=== PATIENT | male | born 1955 | race African-American/Black ===

== ENCOUNTER 2024-02-28 19:37 | Inpatient (IN) | payer MEDICARE, MEDICAID ==
[~2024-02-28] VITALS: Ht 182.9 cm; Wt 70.9 kg
--- NOTE | 2024-02-28 20:00 | ED.PDOC ---
GI ASSESSMENT HPI Comments 68-year-old male with PMHx DM, Epilepsy brought in by EMS presents with a chief complaint of abdominal pain x 0800 onset this morning with associated diarrhea, nausea, and vomiting. Patient states that his abdominal pain is localized to his periumbilical region, non-radiating, describes as sharp, and rates his pain a 10/10. Patient was hypertensive per EMS at 168/74 and had a blood sugar reading of 153. On arrival blood sugar was 114. Patient was sating at 91% on room air and was placed on 2L via NC by EMS. Patient takes Keppra for epilepsy. Chief Complaint: Abdominal Pain Time Seen by MD: 19:52 Reviewed Notes: Medications, Allergies Allergies: Coded Allergies: NO KNOWN ALLERGIES (Unverified , 02/28/24) Information Source: Emergency Med Personnel Mode of Arrival: EMS Timing: Hours Duration: Since onset Prehospital treatment: Oxygen (2L via NC), Pain Meds (Tylenol), Treatment (Zofran ) Quality: Sharp Vomitus: Bilious Stool: Loose, Brown Severity: Moderate Recent: None Recent Hx of: None Pain Location: Periumbilical Associated sign and symptoms: Nausea, Vomiting, Diarrhea, Abdominal Pain Past Medical History PAST MEDICAL HISTORY: DM Past Medical History (Other): Epilepsy Surgical History: Denies all surgeries Family History Family History: Reviewed,noncontributory to illness Social History Smoker: Non-Smoker Alcohol: Denies ETOH Use Drugs: Denies Drug Use Lives In: Home Constitutional: denies: chills, diaphoresis, fatigue, fever, malaise, sweats, weakness, others EENTM: denies: blurred vision, double vision, ear bleeding, ear discharge, ear drainage, ear pain, ear ringing, eye pain, eye redness, hearing loss, mouth pain, mouth swelling, nasal discharge, nose bleeding, nose congestion, nose pain, photophobia, tearing, throat pain, throat swelling, voice changes, others Respiratory: denies: cough, hemoptysis, orthopnea, SOB at rest, shortness of breath, SOB with excertion, stridor, wheezing, others Cardiovascular: denies: chest pain, dizzy spells, diaphoresis, Dyspnea on exertion, edema, irregular heart beat, left arm pain, lightheadedness, palpitations, PND, syncope, others Gastrointestinal: reports: abdominal pain, diarrhea, nausea, vomiting; denies: abdomen distended, blood streaked bowels, constipated, dysphagia, difficulty swallowing, hematemesis, melena, poor appetite, poor fluid intake, rectal bleeding, rectal pain, others Genitourinary: denies: burning, dysuria, flank pain, frequency, hematuria, incontinence, penile discharge, penile sore, pain, testicle pain, testicle swelling, urgency, others Neurological: denies: dizziness, fainting, headache, left sided numbness, left sided weakness, numbness, paresthesia, pre-existing deficit, right sided numbness, right sided weakness, seizure, speech problems, tingling, tremors, weakness, others Musculoskeletal: denies: back pain, gout, joint pain, joint swelling, muscle pain, muscle stiffness, neck pain, others Integumetry: denies: bruises, change in color, change in hair/nails, dryness, laceration, lesions, lumps, rash, wounds, others Allergic/Immunocompromised: denies: Difficulty Healing, Frequent Infections, Hives, Itching, others Hematologic/Lymphatic: denies: anemia, blood clots, easy bleeding, easy bruising, swollen glands, others Endocrine: denies: excessive hunger, excessive sweating, excessive thirst, excessive urination, flushing, intolerance to cold, intolerance to heat, unexplained weight gain, unexplained weight loss, others Psychiatric: denies: anxiety, bipolar disorder, depression, hopeless, panic disorder, schizophrenia, sleepless, suicidal, others All Other Systems: Reviewed and Negative Physical Exam General Appearance: Normal, Severe Distress HEENT: Normal ENT Inspection, Pharynx Normal, TMs Normal Neck: Full Range of Motion, Non-Tender, Normal, Normal Inspection Respiratory: Chest Non-Tender, Lungs Clear, No Accessory Muscle Use, No Respiratory Distress, Normal Breath Sounds Cardiovascular: No Edema, No JVD, No Murmur, No Gallop, Normal Peripheral Pulses, Regular Rate/Rhythm Breast Exam: Deferred Gastrointestinal: Diffuse, No Organomegaly, No Pulsatile Mass, Normal Bowel Sounds, Soft, Tenderness (Severe with guarding) Genitalia: Deferred Pelvic: Deferred Rectal: Deferred Extremities: No calf tenderness, Normal capillary refill, Normal inspection, Normal range of motion, Non-tender, No pedal edema Musculoskeletal : Apperance: Normal Neurologic: Alert, credit rating checker II-XII nml as Tested, No Motor Deficits, Normal Affect, Normal Mood, No Sensory Deficits Cerebellar Function: Normal Reflexes: Normal Skin: Dry, Normal Color, Warm Lymphatic: No Adenopathy Was a procedure done? Was a procedure done?: No GI differential Dx Differential Diagnosis: Constipation, Diverticular disease, Gastritis/PUD, Gastroenteritis, GI hemorrhage, UTI X-Ray, Labs, Meds, VS Vital Signs Date Time Temp Pulse Resp B/P (MAP) Pulse Ox O2 Delivery O2 Flow Rate FiO2 02/28/24 21:45 69 21 186/75 02/28/24 21:30 97.5 69 21 186/75 (112) 92 97.5 02/28/24 21:16 70 02/28/24 20:25 100.5 80 23 168/74 (105) 96 100.5 02/28/24 19:55 109 02/28/24 19:46 97.7 72 26 168/74 (105) 99 Lab Test 02/28/24 21:00 Range/Units White Blood Count 8.4 4.4-10.8 10^3/uL Red Blood Count 6.39 H 4.5-5.90 10^6/uL Hemoglobin 14.3 13.5-17.5 g/dL Hematocrit 43.6 41.0-53.0 % Mean Corpuscular Volume 68.3 L 80.0-100.0 fL Mean Corpuscular Hemoglobin 22.4 L 28.0-32.0 pg Mean Corpuscular Hemoglobin Concent 32.8 32.0-36.0 g/dL Red Cell Distribution Width 22.8 H 11.8-14.3 % Platelet Count 217 140-450 10^3/uL Mean Platelet Volume 8.6 6.9-10.8 fL Neutrophils (%) (Auto) 87.2 H 37.0-80.0 % Lymphocytes (%) (Auto) 5.3 L 10.0-50.0 % Monocytes (%) (Auto) 7.0 0.0-12.0 % Eosinophils (%) (Auto) 0.0 0.0-7.0 % Basophils (%) (Auto) 0.5 0.0-2.0 % Neutrophils # (Auto) 7.3 1.6-8.6 10 ^3/uL Lymphocytes # (Auto) 0.4 0.4-5.4 10 ^3/uL Monocytes # (Auto) 0.6 0-1.3 10 ^3/uL Eosinophils # (Auto) 0 0-0.8 10 ^3/uL Basophils # (Auto) 0 0-0.2 10 ^3/uL Nucleated Red Blood Cells 0.1 % Sodium Level 137 136-145 mmol/L Potassium Level 3.7 3.5-5.1 mmol/L Chloride Level 102 98-107 mmol/L Carbon Dioxide Level 23 20-31 mmol/L Anion Gap 12 5-15 Blood Urea Nitrogen 15 9-23 mg/dL Creatinine 1.02 0.700-1.30 mg/dL Glomerular Filtration Rate Calc 80 >90 mL/min BUN/Creatinine Ratio 14.7 10.0-20.0 Serum Glucose 120 H 74-106 mg/dL Lactic Acid Level 3.9 *H 0.4-2.0 mmol/L Calcium Level 10.0 8.7-10.4 mg/dL Total Bilirubin 1.4 H 0.2-1.0 mg/dL Aspartate Amino Transferase (AST) 42 H 13-40 U/L Alanine Aminotransferase (ALT) 18 7-40 U/L Alkaline Phosphatase 78 46-116 U/L Troponin I High Sensitivity 12 </=54 ng/L Total Protein 6.9 5.7-8.2 g/dL Albumin 4.4 3.2-4.8 g/dL Urine Opiates Screen Neg NEGATIVE Urine Fentanyl Screen Neg NEGATIVE Urine Barbiturates Screen Neg NEGATIVE Urine Phencyclidine Screen Neg NEGATIVE Urine Amphetamines Screen Neg NEGATIVE Urine Benzodiazepines Screen Neg NEGATIVE Urine Cocaine Screen Neg NEGATIVE Urine Cannabinoids Screen Pos NEGATIVE Plasma/Serum Blood Alcohol 4.3 <10 mg/dL Current Medications Medications (Trade) Dose Ordered Sig/Sergei Route Start Time Stop Time Status Last Admin Sodium Chloride 2,000 ml @ 1,000 mls/hr Q2H ONCE IV 02/28/24 20:00 02/28/24 21:59 DC 02/28/24 20:31 Ketorolac Tromethamine (Toradol Injection) 30 mg ONCE ONCE IV 02/28/24 20:00 02/28/24 20:01 DC 02/28/24 20:31 Ondansetron HCl (Zofran) 4 mg ONCE ONCE IV 02/28/24 20:00 02/28/24 20:01 DC 02/28/24 20:30 Hydromorphone HCl (Dilaudid Injection) 1 mg ONCE ONCE IV 02/28/24 21:00 02/28/24 21:01 DC 02/28/24 21:45 PATIENT: GIGI BATES: [id number]: [id number] : 1955 LOC: ER ROOM / BED: / AGE / SEX: 68 / M ADM STATUS: REG ER SERVICE 54 ORDERING PHYSICIAN: MACO CASTANON MD PROCEDURE(s): ABPLIV - CT AB PEL WITH IV CON ONLY REASON: abd pain ORDER NUMBER(s): [id number], ACCESSION NUMBER(s): [id number] Exam: CT CT AB PEL WITH IV CON ONLY History: abd pain Comparison Study: None TECHNIQUE: A digital counterintelligence specialist image was obtained. During the uneventful, intravenous administration of contrast material, multislice data acquisition was obtained through the abdomen and pelvis. The data set was subsequently reconstructed into axial images. Images reviewed on a wrist examination is an examination of axial and multiplanar reformations using a variety of window levels and settings. RADIATION DOSE: DLP 483.66 mGy.cm; CTDI vol 9.2 mGy. Findings: Suboptimal visualization due to motion and beam hardening artifacts. Lungs: The lung bases are clear. Heart: The visualized heart is unremarkable. No cardiomegaly or pericardial effusion. Liver: Unremarkable. Gallbladder: Unremarkable. Spleen: Unremarkable Pancreas: Unremarkable Adrenals: Unremarkable Kidneys: Left renal cyst. GI tract: Unremarkable : Unremarkable. Vasculature: Mild to moderate aortoiliac atherosclerosis. Lymphadenopathy: Absent Peritoneum: No ascites Musculoskeletal: Unremarkable Soft tissues: Unremarkable Impression: 1. Suboptimal visualization due to motion and beam hardening artifacts. 2. No definite acute abdominopelvic abnormalities. ATED BY: KELL EPSTEIN DO DICTATED DATE/TIME: 02/28/242133 SIGNED BY: KELL EPSTEIN DO SIGNED DATE/TIME: 02/28/242133 CBC and CMP were normal. UDS reveals positive for marijuana. Abdominal pelvis CT shows no signs of abnormality. CT scan was read and interpreted by myself. The patient was given Zofran for recurrent and recalcitrant nausea and vomiting. He was also given Protonix and GI cocktail with Dilaudid. If he continues to have vomiting we will give him Haldol. Time of 1ST Reevaluation: 20:22 Reevaluation 1ST: Unchanged Patient Education/Counseling: Diagnosis, Treatment, Prognosis Family Education/Counseling: No Family Present Departure 1 Departure Time of Disposition: 22:09 Impression: Primary Impression: Cyclic vomiting syndrome Additional Impression: Marijuana abuse Disposition: ADMITTED INPATIENT Admit to: Med Surg Condition: Guarded Discharged With: Self Critical Care Note Critical Care Time?: No Stability Stability form required: No I personally scribed for MACO CASTANON MD ([email or web address]) on 02/28/24 at 20:00. Electronically submitted by Lalo Cosby [email or web address]). I personally scribed for MACO CASTANON MD ([email or web address]) on 02/28/24 at 22:02. Electronically submitted by Lalo Cosby [email or web address]). MACO CASTANON MD Feb 28, 2024 20:00
[2024-02-28] MEDS: ONDANSETRON HCL 4 MG/2 ML VIAL IV ONE (20:30)
[2024-02-28] MEDS: KETOROLAC TROMETH 30 MG/ML 1ML VIAL IV ONE (20:31)
[2024-02-28] MEDS: SODIUM CHLORIDE 0.9% 2,000 ML IV ONE (20:31)
[2024-02-28] MEDS: IOHEXOL 300 MG/ML 100ML BOTTLE IJ ONE (20:44)
[2024-02-28 21:25] LABS: Basophils # (auto) 0 10 ^3/uL (0-0.2); Eosinophils # (auto) 0 10 ^3/uL (0-0.8)
[2024-02-28 21:27] LABS: Basophils % (auto) 0.5 % (0.0-2.0); Hematocrit 43.6 % (41.0-53.0); Hemoglobin 14.3 g/dL (13.5-17.5); Lymphocytes # (auto) 0.4 10 ^3/uL (0.4-5.4); Lymphocytes % (auto) 5.3 % (10.0-50.0); Mean Corpuscular Hemoglobin 22.4 pg (28.0-32.0); Mean Corpuscular Hgb Conc. 32.8 g/dL (32.0-36.0); Mean Corpuscular Volume 68.3 fL (80.0-100.0); Monocytes # (auto) 0.6 10 ^3/uL (0-1.3); Neutrophils # (auto) 7.3 10 ^3/uL (1.6-8.6); Neutrophils % (auto) 87.2 % (37.0-80.0); Nucleated Red Blood Cells % 0.1 %; Platelet Count (auto) 217 10^3/uL (140-450); Red Blood Cells 6.39 10^6/uL (4.5-5.90); White Blood Cell 8.4 10^3/uL (4.4-10.8)
[2024-02-28 21:29] LABS: Red Cell Distribution Width 22.8 % (11.8-14.3)
[2024-02-28 21:36] LABS: Alanine Aminotransferase 18 U/L (7-40); Albumin 4.4 g/dL (3.2-4.8); Alkaline Phosphatase 78 U/L (46-116); Anion Gap 12 (5-15); BUN/Creatinine Ratio 14.7 (10.0-20.0); Blood Urea Nitrogen 15 mg/dL (9-23); Carbon Dioxide 23 mmol/L (20-31); Chloride 102 mmol/L (98-107); Potassium 3.7 mmol/L (3.5-5.1); Sodium 137 mmol/L (136-145); Total Protein 6.9 g/dL (5.7-8.2)
--- NOTE | 2024-02-28 21:36 | DVH ---
Exam: CT CT AB PEL WITH IV CON ONLY History: abd pain Comparison Study: None TECHNIQUE: A digital printing and stamping supervisor image was obtained. During the uneventful, intravenous administration of c ontrast material, multislice data acquisition was obtained through the abdomen and pelvis. The data s et was subsequently reconstructed into axial images. Images reviewed on a wrist examination is an exa mination of axial and multiplanar reformations using a variety of window levels and settings. RADIATION DOSE: DLP 483.66 mGy.cm; CTDI vol 9.2 mGy. Findings: Suboptimal visualization due to motion and beam hardening artifacts. Lungs: The lung bases are clear. Heart: The visualized heart is unremarkable. No cardiomegaly or pericardial effusion. Liver: Unremarkable. Gallbladder: Unremarkable. Spleen: Unremarkable Pancreas: Unremarkable Adrenals: Unremarkable Kidneys: Left renal cyst. GI tract: Unremarkable : Unremarkable. Vasculature: Mild to moderate aortoiliac atherosclerosis. Lymphadenopathy: Absent Peritoneum: No ascites Musculoskeletal: Unremarkable Soft tissues: Unremarkable Impression: 1. Suboptimal visualization due to motion and beam hardening artifacts. 2. No definite acute abdominopelvic abnormalities.
[2024-02-28 21:42] LABS: Aspartate Aminotransferase 42 U/L (13-40); Bilirubin, Total 1.4 mg/dL (0.2-1.0); Glucose 120 mg/dL (74-106)
[2024-02-28 21:43] LABS: Amphetamine Screen, Urine Neg (NEGATIVE); Barbiturate Scree,Urine Neg (NEGATIVE); Benzodiazephine Screen, Urine Neg (NEGATIVE); Cannabinoid Screen, Urine Pos (NEGATIVE); Cocaine Screen, Urine Neg (NEGATIVE); Opiate Scree,Urine Neg (NEGATIVE); Phencyclidine Screen, Urine Neg (NEGATIVE)
[2024-02-28] MEDS: HYDROmorphone HCL 2 MG/ML VL/or syr IV ONE (21:45)
[2024-02-28 21:48] LABS: Lactic Acid w/Reflex 3.9 mmol/L (0.4-2.0)
[2024-02-28 22:03] VITALS: RESP 23; O2SAT 96
[2024-02-28 22:13] LABS: Base Excess -4.9 mmol/L (-2.0-3.0)
[2024-02-28] MEDS ORDERED: NITROGLYCERIN 0.4 MG SL TAB SL PRN (23:00)
[2024-02-28] MEDS ORDERED: ONDANSETRON HCL 4 MG/2 ML VIAL IV PRN (23:00)
[2024-02-28] MEDS ORDERED: MORPHINE SULFATE INJ 2 MG/ml SYRG IV PRN ×2 (23:00)
[2024-02-28] MEDS ORDERED: ACETAMINOPHEN 325 MG TAB PO PRN (23:00)
--- NOTE | 2024-02-28 23:10 | DVHHPRES ---
History of Present Illness Resident Creating Document: KYARA RODRIGUEZ RESIDENT History of Present Illness This is a 68 years old male with past medical history of hypertension, epilepsy presented to the ED with a chief complaint of abdominal pain, nausea and vomiting for 2 days. According to the patient the abdominal pain started yesterday which was sharp, localized,8/10, with no aggravating factors and relieved by taking Protonix and associated with nausea and vomiting. The patient mentioned recently started marijuana abuse and UDS is also positive for marijuana. The patient denies hematemesis, dizziness, dysuria, hematuria , diarrhoea or any blood in stool. Patient has history of epilepsy since young age and he is on medication but did not mentioned the name and last seizure was today morning and it was last for 2 minutes witnessed by his fiance without any incontinence or tongue biting. PCP: Yousif Pedraza Past Medical History Hypertension, epilepsy Past Surgical History None Past Social History Smokes 10 cigarettes per day, nonalcoholic and also smokes marijuana Review of Systems Constitutional: No: Fever, Chills, Sweats, Weakness, Malaise, Other Eyes: No: Pain, Vision change, Conjunctivae inflammation, Eyelid inflammation, Other, Redness ENT: No: Ear pain, Ear discharge, Nose pain, Nose discharge, Nose congestion, Mouth pain, Mouth swelling, Throat pain, Throat swelling, Other Respiratory: No: Cough, Dry, Shortness of breath, SOB with excertion, Wheezing, Hemoptysis, Pleuritic Pain, Sputum, Wheezing, Other Cardiovascular: No: Chest Pain, Palpitations, Orthopnea, Paroxysmal Noc. Dyspnea, Edema, Lt Headedness, Other Gastrointestinal: Nausea, Vomiting, Abdominal Pain, Constipation; No: Diarrhea, Melena, Hematochezia, Other Genitourinary: No Dysuria, No Frequency, No Incontinence, No Hematuria, No Retention, No Other Musculoskeletal: No: other, neck pain, shoulder pain, arm pain, back pain, hand pain, leg pain, foot pain Skin: No: Rash, Lesions, Jaundice, Bruising, Other Neurological: No: Weakness, Numbness, Incoordination, Change in speech, Confusion, Seizures, Other Allergies: Coded Allergies: NO KNOWN ALLERGIES (Unverified , 02/28/24) Medications Current Medications Medications Dose Ordered Sig/Sergei Route Start Time Stop Time Status Last Admin Dose Admin Sodium Chloride 10 ml Q8HR IV 02/29/24 06:00 UNV Sodium Chloride 1,000 ml @ 100 mls/hr Q10H IV 02/28/24 23:00 UNV Ondansetron HCl 4 mg Q4HP PRN IV 02/28/24 23:00 UNV Enoxaparin Sodium 40 mg DAILY SC 02/29/24 10:00 Acetaminophen 650 mg Q6HP PRN PO 02/28/24 23:00 UNV Morphine Sulfate 2 mg Q4HPRN PRN IV 02/28/24 23:00 UNV Nitroglycerin 0.4 mg Q5MINP PRN SL 02/28/24 23:00 UNV Morphine Sulfate 2 mg Q30M PRN IV 02/28/24 23:00 UNV Exam Vital Signs Vital Signs Date Time Temp Pulse Resp B/P (MAP) Pulse Ox O2 Delivery O2 Flow Rate FiO2 02/28/24 22:03 23 96 Room Air* 0 21 02/28/24 22:00 78 139/50 (79) 02/28/24 21:30 97.5 97.5 Exam Physical examination: General Appearance: Alert, Oriented X3, Cooperative, No acute distress HEENT: Atraumatic, PERRLA, EOMI, Mucous membrane moist/pink Respiratory: Clear to auscultation, Normal air movement Cardiovascular: Regular rate, Normal S1, Normal S2, No murmurs, no chest wall tenderness Abdominal: Normal bowel sounds, Soft, No tenderness, No hepatospenomegaly, No masses Extremities: No clubbing, No cyanosis, No edema, Normal pulses, No tenderness/swelling Skin: No rashes, No breakdown, No significant lesion Neuro: Normal gait, Normal speech, Strength at 5/5 X4 ext, Normal tone, Sensation intact, grossly intact cranial nerves Psych/Mental Status: Mental status NL, Mood NL Labs/Xrays Labs Test 02/28/24 22:20 02/28/24 22:10 02/28/24 22:05 02/28/24 21:00 Range/Units Lactic Acid Level 2.4 *H 0.4-2.0 mmol/L Troponin I High Sensitivity 11 </=54 ng/L Blood Gas Specimen Type Arterial Blood Gas Sample Site Right radial Blood Gas Patient Temperature 37.0 Arterial Blood Date Drawn [id number] Arterial Blood pH 7.370 7.350-7.450 Arterial Blood Partial Pressure CO2 34.6 L 35.0-48.0 mmHg Arterial Blood Partial Pressure O2 55.8 L 83.0-108.0 mmHg Arterial Blood HCO3 19.6 L 21.0-28.0 mmol/L Arterial Blood Oxygen Saturation 87.4 L 94.0-98.0 % Arterial Blood Base Excess -4.9 L -2.0-3.0 mmol/L Arterial Blood Oxyhemoglobin 85.7 L 94.0-98.0 % Arterial Blood Carboxyhemoglobin 1.4 0.5-1.5 % Arterial Blood Methemoglobin 0.6 0.0-1.5 % Lino Test Yes Blood Gas Total Hemoglobin 13.70 13.5-17.5 g/dL Blood Gas Modality Room air FiO2 % 21.0 White Blood Count 8.4 4.4-10.8 10^3/uL Red Blood Count 6.39 H 4.5-5.90 10^6/uL Hemoglobin 14.3 13.5-17.5 g/dL Hematocrit 43.6 41.0-53.0 % Mean Corpuscular Volume 68.3 L 80.0-100.0 fL Mean Corpuscular Hemoglobin 22.4 L 28.0-32.0 pg Mean Corpuscular Hemoglobin Concent 32.8 32.0-36.0 g/dL Red Cell Distribution Width 22.8 H 11.8-14.3 % Platelet Count 217 140-450 10^3/uL Mean Platelet Volume 8.6 6.9-10.8 fL Neutrophils (%) (Auto) 87.2 H 37.0-80.0 % Lymphocytes (%) (Auto) 5.3 L 10.0-50.0 % Monocytes (%) (Auto) 7.0 0.0-12.0 % Eosinophils (%) (Auto) 0.0 0.0-7.0 % Basophils (%) (Auto) 0.5 0.0-2.0 % Neutrophils # (Auto) 7.3 1.6-8.6 10 ^3/uL Lymphocytes # (Auto) 0.4 0.4-5.4 10 ^3/uL Monocytes # (Auto) 0.6 0-1.3 10 ^3/uL Eosinophils # (Auto) 0 0-0.8 10 ^3/uL Basophils # (Auto) 0 0-0.2 10 ^3/uL Nucleated Red Blood Cells 0.1 % Sodium Level 137 136-145 mmol/L Potassium Level 3.7 3.5-5.1 mmol/L Chloride Level 102 98-107 mmol/L Carbon Dioxide Level 23 20-31 mmol/L Anion Gap 12 5-15 Blood Urea Nitrogen 15 9-23 mg/dL Creatinine 1.02 0.700-1.30 mg/dL Glomerular Filtration Rate Calc 80 >90 mL/min BUN/Creatinine Ratio 14.7 10.0-20.0 Serum Glucose 120 H 74-106 mg/dL Calcium Level 10.0 8.7-10.4 mg/dL Total Bilirubin 1.4 H 0.2-1.0 mg/dL Aspartate Amino Transferase (AST) 42 H 13-40 U/L Alanine Aminotransferase (ALT) 18 7-40 U/L Alkaline Phosphatase 78 46-116 U/L Total Protein 6.9 5.7-8.2 g/dL Albumin 4.4 3.2-4.8 g/dL Urine Opiates Screen Neg NEGATIVE Urine Fentanyl Screen Neg NEGATIVE Urine Barbiturates Screen Neg NEGATIVE Urine Phencyclidine Screen Neg NEGATIVE Urine Amphetamines Screen Neg NEGATIVE Urine Benzodiazepines Screen Neg NEGATIVE Urine Cocaine Screen Neg NEGATIVE Urine Cannabinoids Screen Pos NEGATIVE Plasma/Serum Blood Alcohol 4.3 <10 mg/dL Assessment/Plan Assessment/Plan Assessment and plan: # Early sepsis due to unknown reason - On admission patient had temperature, left shift neutrophilia, tachycardia and elevated lactic acid - Ordered UA, blood and urine culture - IV Zosyn 3.375 mg Q 8 hours # Intractable abdominal pain and vomiting likely due to marijuana hyperemesis syndrome - UDS is positive for marijuana. - CT abdomen pelvis revealed normal study - IV fluid IV normal saline at 100 mL/hour - IV morphine 2 mg q.4 p.r.n. - IV ondansetron 4 mg q.4 p.r.n. # Lactic acidosis likely due to dehydration - Patient was given 2 L IV bolus normal saline - IV normal saline at 100 mL/hour - Monitor lactic acid level # Hyperbilirubinemia with transaminitis - Ordered ultrasound of the whole abdomen # Breakthrough seizure - IV lorazepam 1 mg Q 5 minutes p.r.n. - IV Keppra 1000 mg daily - Consulted neurology # Hypertensive heart disease - Ordered echo - Lisinopril 5 mg p.o. daily. # Marijuana abuse - Counseled patient regarding drug abuse and rehabilitation. Code status discussed with the patient for more than 20 minutes full code Plan of treatment discussed with Dr. Valdez Plan discussed with: Patient, Other My Orders Orders - KYARA RODRIGUEZ Procedure Category Date Status Time Admit ADMIT 02/28/24 Transmitted 22:59 Code Status CODE 02/28/24 Transmitted 22:59 Sodium Chloride Lock PHA 02/29/24 Logged (Saline Lock Ns) 06:00 Sodium Chloride 0.9% PHA 02/28/24 Logged 23:00 Ondansetron Hcl PHA 02/28/24 Logged (Zofran) 23:00 Enoxaparin Sodium PHA 02/29/24 In Process (Lovenox) 10:00 Complete Blood Count LAB 02/29/24 Verified 04:00 Comprehensive LAB 02/29/24 Verified Metabolic Panel 04:00 Echo 2d Mode Cardiac US 02/28/24 Logged DOP 22:59 Acetaminophen Tablet PHA 02/28/24 Logged (Tylenol Tablet) 23:00 Clear Liq Diet DIET 02/29/24 Transmitted Breakfast Morphine Sulfate PHA 02/28/24 Logged Injection 23:00 Nitroglycerin PHA 02/28/24 Logged Sublingual (Ntrostat 23:00 Morphine Sulfate PHA 02/28/24 Logged Injection 23:00 Oxygen By Nasal RT 02/28/24 Transmitted Cannula 22:59 Stat Ekg For Chest [facility] 02/28/24 In Process Pain 22:59 Notify Of Changes [facility] 02/28/24 In Process From Base 22:59 Metal Extrusion Supervisor For [facility] 02/28/24 In Process 24 Hours 22:59 Emergency Dysrhythmia [facility] 02/28/24 In Process Protocol 22:59 Rhythm Strips Once [facility] 02/28/24 In Process Every Shift 22:59 Date of Service: Feb 28, 2024 Billing Provider: FEI VALDEZ MD Common Visit Codes: [id number] INP/OBS CARE (HIGH) Secondary Visit Codes: [id number] CARE PLAN 30 MINUTES KYARA RODRIGUEZ Feb 28, 2024 23:10 FEI VALDEZ MD Feb 29, 2024 09:29
[2024-02-28 23:18] LABS: Urine Bacteria None Seen /hpf (None Seen)
[2024-02-28] MEDS: SODIUM CHLORIDE 0.9% 1,000 ML IV SCH (23:25)
[2024-02-28] MEDS: PANTOPRAZOLE 40 MG/10 ML VIAL INJ IV ONE (23:26)
[2024-02-28] MEDS: MAALOX PLUS or MAALOX 30 ML PO ONE (23:26)
[2024-02-28 23:35] LABS: Urine Blood Negative /uL (Negative); Urine Clarity Clear (Clear); Urine Color Light-Yellow (Yellow); Urine Protein, UAD 1+ (Negative); Urine Specific Gravity 1.043 (1.001-1.035); Urine Urobilinogen Normal (Negative); Urine WBC <1 /hpf (0 - 3); Urine pH 8.5 (5.0-9.0)
--- NOTE | 2024-02-29 00:46 | DVH ---
INDICATION: Hyperbilirubinemia TECHNIQUE: Multiple real-time sonographic images of the abdomen were obtained. COMPARISON: None FINDINGS: The liver is homogenous in echogenicity. The liver measures 14cm. No intrahepatic biliary ductal dilatation is noted. The gallbladder wall measures 0.1 cm and is unremarkable. No gallstones or sludge is seen. The com mon duct measures 0.8 cm and is unremarkable. No pericholecystic fluid is noted. The right kidney measures 9.2cm. No hydronephrosis. The left kidney measures 11cm. No hydronephrosi s. Left kidney cystic lesion measuring 1.1 cm. The spleen measures 7.5cm, within normal limits. The echogenicity is within normal limits. The pancreas is not well visualized due to obscuration from bowel gas. The visualized portions of the IVC and aorta are grossly unremarkable. IMPRESSION: Dilated common bile duct slightly greater than expected for patient's age. Concern for biliary obstru ction consider further evaluation with HIDA scan or MRCP.
[2024-02-29] MEDS: SODIUM CHLOR 0.9% PF (SALINE LOCK) 10ML VIAL/SYR IV SCH (05:21)
[2024-02-29] MEDS: PIPERACILLIN-TAZOB 3.375GM 100 ML IV SCH (05:30)
[2024-02-29 06:28] LABS: Basophils # (auto) 0 10 ^3/uL (0-0.2); Basophils % (auto) 0.1 % (0.0-2.0); Eosinophils # (auto) 0 10 ^3/uL (0-0.8); Eosinophils % (auto) 0.1 % (0.0-7.0); Hematocrit 39.9 % (41.0-53.0); Hemoglobin 12.9 g/dL (13.5-17.5); Lymphocytes # (auto) 1.2 10 ^3/uL (0.4-5.4); Lymphocytes % (auto) 12.3 % (10.0-50.0); Mean Corpuscular Hemoglobin 22.2 pg (28.0-32.0); Mean Corpuscular Hgb Conc. 32.2 g/dL (32.0-36.0); Mean Corpuscular Volume 68.9 fL (80.0-100.0); Monocytes # (auto) 1.2 10 ^3/uL (0-1.3); Monocytes % (auto) 12.3 % (0.0-12.0); Neutrophils # (auto) 7.1 10 ^3/uL (1.6-8.6); Neutrophils % (auto) 75.2 % (37.0-80.0); Nucleated Red Blood Cells % 0.2 %; Platelet Count (auto) 199 10^3/uL (140-450); White Blood Cell 9.5 10^3/uL (4.4-10.8)
[2024-02-29 06:33] LABS: Red Cell Distribution Width 22.6 % (11.8-14.3)
[2024-02-29 06:48] LABS: Alanine Aminotransferase 17 U/L (7-40); Albumin 3.8 g/dL (3.2-4.8); Alkaline Phosphatase 64 U/L (46-116); Anion Gap 7 (5-15); BUN/Creatinine Ratio 15.2 (10.0-20.0); Blood Urea Nitrogen 16 mg/dL (9-23); Calcium 9.2 mg/dL (8.7-10.4); Carbon Dioxide 26 mmol/L (20-31); Chloride 106 mmol/L (98-107); Glucose 102 mg/dL (74-106); Potassium 3.7 mmol/L (3.5-5.1); Sodium 139 mmol/L (136-145)
[2024-02-29 06:49] LABS: Bilirubin, Total 1.1 mg/dL (0.2-1.0); Total Protein 6.1 g/dL (5.7-8.2)
[2024-02-29 06:58] LABS: Aspartate Aminotransferase 43 U/L (13-40)
[2024-02-29] MEDS ORDERED: PANTOPRAZOLE 40 MG/10 ML VIAL INJ IV ONE (07:15)
[2024-02-29 07:30] VITALS: RESP 23; O2SAT 96
[2024-02-29 07:42] LABS: % Iron Saturation 33.7 % (20-55)
--- NOTE | 2024-02-29 08:13 | DVHPNRES ---
Progress Note Date Seen: Feb 29, 2024 Resident Creating Document: AUDRA GARCÍA RESIDENT Has the PT tested + for MRSA If YES, has PT been informed?: No Medical Necessity Reason Pt with a Central, PICC or Fol: No Subjective Patient reports: No new complaints, Feels better Changes from previous H/P or p: No Changes Review of Systems: HEENT:Normal, CVS:Normal, RESPIRATORY:Normal, GI:Normal, :Normal, MSK:Normal, NEURO:Normal Objective vital signs Vital Sign Date Time Temp Pulse Resp B/P (MAP) Pulse Ox O2 Delivery O2 Flow Rate FiO2 02/29/24 06:00 85 19 102/78 (86) 94 02/28/24 22:03 Room Air* 0 21 02/28/24 21:30 97.5 97.5 medications Current Medications Medications Dose Ordered Sig/Sergei Route Start Time Stop Time Status Last Admin Dose Admin Sodium Chloride 10 ml Q8HR IV 02/29/24 06:00 02/29/24 05:21 10 ML Sodium Chloride 1,000 ml @ 100 mls/hr Q10H IV 02/28/24 23:00 02/28/24 23:25 100 MLS/HR Ondansetron HCl 4 mg Q4HP PRN IV 02/28/24 23:00 Enoxaparin Sodium 40 mg DAILY SC 02/29/24 10:00 Acetaminophen 650 mg Q6HP PRN PO 02/28/24 23:00 Morphine Sulfate 2 mg Q4HPRN PRN IV 02/28/24 23:00 Nitroglycerin 0.4 mg Q5MINP PRN SL 02/28/24 23:00 Morphine Sulfate 2 mg Q30M PRN IV 02/28/24 23:00 Levetiracetam 100 ml @ 400 mls/hr DAILY IV 02/29/24 10:00 Piperacillin Sod/ Tazobactam Sod 100 ml @ 100 mls/hr Q8HR IV 02/29/24 06:00 02/29/24 05:30 100 MLS/HR Lisinopril 5 mg DAILY PO 02/29/24 10:00 Lorazepam 1 mg Q5MINP PRN IM 02/29/24 10:00 Pantoprazole Sodium 40 mg DAILY IV 02/29/24 10:00 Examination: GENERAL:Normal, HEENT:Normal, NECK:Normal, LUNGS:Normal, CVS:Normal, ABDOMEN:Abnormal (distended, tympanic and epgastric pain. ), MSK:Abnormal, SKIN:Normal, NEURO:Normal, :Normal laboratory and microbiology Laboratory Tests 02/29/24 05:11 Test 02/29/24 05:11 Range/Units Serum Glucose 102 74-106 mg/dL Labs and/or images reviewed: Labs reviewed by me, Image(s) reviewed by me Problem List/Assessment/Plan Problem List/Assessment/Plan Assessment: Mr. Headley, a 68-year-old male with a history of hypertension and epilepsy presented to the ED with abdominal pain, nausea, and vomiting for two days. The abdominal pain, which began yesterday, was sharp, localized, and rated 8/10 in intensity, with no aggravating factors and relief from Protonix. The patient reported recent marijuana abuse, confirmed by a positive UDS, but denied hematemesis, dizziness, dysuria, hematuria, diarrhea, or blood in stool. He experienced a seizure this morning, lasting two minutes, witnessed by his fiance, without incontinence or tongue biting. His social history includes smoking 10 cigarettes per day, nonalcoholic status, and marijuana use. Plan: #1 Severe SIRS could be due to intravascular fluid: Ordered UA, blood, and urine culture, IV Zosyn 3.375 mg Q 8 hours for possible intraabdominal infection to cover gram -ve and anaerobic. follow cbc, cmp and lactae. INR and PT to check. patient remains in RA hemodynamically stable. #2 Cyclic vomiting syndrome: Intractable abdominal pain and vomiting likely due marijuana. marijuana cesation. check lipase and follow cbc. #3 Lactic acidosis likely due to dehydration: iv fluid, control of vomiting. #4 Active smoker: quit smoking discussion done for 11 minutes of smoking cessation. on nicotine patch. #5 Breakthrough seizure: Continue keppra loading, then oral keppra. likely due to sudden cesation due to nauseas and vomiting. possible trigger find. seizure precaution. #6 Hypertensive heart disease: blood pressure control 140/90 or below target as per DM type 2. #7 Marijuana abuse: cessation counseling done. #8 Microcytic hypochromic anemia: check fobt, iron panel and other possible source of bleeding/ iron deficiency. last colonoscopy not available. #9 Possible viral gastroenteritis: continue conservative management and hydration. #10 Intractable nauseas vomiting: po intolerance #11 Hyperbilirubinemia with transaminitis: check HIDA for possible hepatobiliarty pathology ruled out. mild dilatation in US and CT abdomen. likely due to occasional alcohol use. PUD prophylaxis: protonix 40mg iv daily DVT prophylaxis: Levonox 40mg/ brisk movement. Barriers to discharge: Medical diagnosis and management in progress. Patient lives with fiance/ family. PCP: Yousif Pedraza Specialist Relevant To Admission: GI / Surgery as needed. Smoking cessation more than 11 minutes. Preventative discussion done additional 10 minutes for Marijuana, drug abuse. Case discussed with Dr. Robledo Code Status: Full Code. Discussion needed total 29 minutes bedside. The patient will be kept overnight for monitoring seizure and oral tolerance of fluid and diet. Plan discussed with: Patient, Other (primary team. RN) My Orders My Orders Orders - AUDRA GARCÍA Procedure Category Date Status Time Lactic Acid W/ Reflex LAB 02/29/24 In Process Order 07:08 Stool Occult Blood LAB 02/29/24 Logged 07:09 Pantoprazole PHA 02/29/24 In Process (Protonix) 10:00 Nm Hida Scan NM 02/29/24 Logged 07:12 Date of Service: Feb 29, 2024 Billing Provider: TERESSA MAI MD Common Visit Codes: [id number] INP/OBS CARE(HIGH) Secondary Visit Codes: [id number] COUNSELING IND, 08189-DLFIH CHNG SMOKING >10MIN AUDRA GARCÍA Feb 29, 2024 08:13 TERESSA MAI MD Mar 01, 2024 09:38
[2024-02-29 08:33] LABS: INR 1.09 (0.9-1.15); Partial Thromboplastin Time 24.2 SEC (24.5-34.5); Prothrombin Time 11.5 sec (9.3-11.8)
--- NOTE | 2024-02-29 08:54 | DVHINCON2 ---
Date of service: Feb 29, [address] Chavez Reason for Consultation Seizure History of Present Illness Mr. Headley is a 59 years old right-handed gentleman with a history of diabetes, he came to the [facility] on 04/30 23 with a chief company of abdominal pain, but patient also had a seizure activity at home and history of seizure disorder. He does not remember, according to his friend, the patient was had event in that he was shaking all over body, eyes rolling back, with slightly increased saliva, the event was about 3 minutes, The patient was has had seizure disorder since 1998, he was complete amnesia about the seizure symptoms, and there was no warning/aura before the seizure, and seizure typically happened when he was asleep. He reports stress caused his seizure. According to his friend, this is a event with shaking all over body, eyes rolling back, slight increased saliva, he was had urinary continence, but no biting or oral trauma. He has had three seizures in 2023. He was on Keppra 500 mg b.i.d. with good compliance, no side effects He denies symptoms of olfactory hallucination or confusion spells ABG, 02/28/2024: Compensated metabolic acidosis CBC/HB/PLT/MCV, 02/29/2024: 9.5/12.9/199/68.9 BMP, 02/29/2024: Unremarkable Lactic acid, 02/28/2024: 3.9, 2.4 Iron profile, 02/29/2024: Unremarkable TBI/AST/ALT/AP, 02/29/2024: 1.1/43/17/64 TSH, 02/28/2024: 1.29 Abdominal/pelvis CT, 02/28/2024: 1. Suboptimal visualization due to motion and beam hardening artifacts. 2. No definite acute abdominopelvic abnormalities Past Medical History Diabetes, seizure Past Surgical History Cataract surgery, hernia repair Family History Heart disease Social History He smokes tobacco, he was the marijuana, otherwise no problem with alcohol or drug Allergies: Coded Allergies: NO KNOWN ALLERGIES (Unverified , 02/28/24) Home Meds No Active Prescriptions or Reported Meds Current Medications Current Medications Medications (Trade) Dose Ordered Sig/Sergei Route PRN Reason Start Time Stop Time Status Last Admin Sodium Chloride (Saline Lock Ns) 10 ml Q8HR IV 02/29/24 06:00 02/29/24 05:21 Sodium Chloride 1,000 ml @ 100 mls/hr Q10H IV 02/28/24 23:00 02/28/24 23:25 Ondansetron HCl (Zofran) 4 mg Q4HP PRN IV NAUSEA / VOMITING 02/28/24 23:00 Enoxaparin Sodium (Lovenox) 40 mg DAILY SC 02/29/24 10:00 Acetaminophen (Tylenol Tablet) 650 mg Q6HP PRN PO PAIN SCALE 1-3 OR TEMP>100.4 02/28/24 23:00 Morphine Sulfate 2 mg Q4HPRN PRN IV SEVERE PAIN (7-10 PAIN SCALE) 02/28/24 23:00 Nitroglycerin (Ntrostat Sublingual) 0.4 mg Q5MINP PRN SL FOR CHEST PAIN 02/28/24 23:00 Morphine Sulfate 2 mg Q30M PRN IV FOR CHEST PAIN 02/28/24 23:00 Levetiracetam 100 ml @ 400 mls/hr DAILY IV 02/29/24 10:00 Piperacillin Sod/ Tazobactam Sod 100 ml @ 100 mls/hr Q8HR IV 02/29/24 06:00 02/29/24 05:30 Pantoprazole Sodium (Protonix Tablet) 40 mg DAILY PO 02/29/24 10:00 02/29/24 07:11 DC Lisinopril (Zestril Tablet) 5 mg DAILY PO 02/29/24 10:00 Lorazepam (Ativan Inj) 1 mg Q5MINP PRN IM AGITATION 02/29/24 10:00 Pantoprazole Sodium (Protonix) 40 mg DAILY IV 02/29/24 10:00 Review of Systems As above, the other systems are negative Vital Signs Vital Signs Date Time Temp Pulse Resp B/P (MAP) Pulse Ox O2 Delivery O2 Flow Rate FiO2 02/29/24 06:00 85 19 102/78 (86) 94 02/28/24 22:03 Room Air* 0 21 02/28/24 21:30 97.5 97.5 Physical Exam GENERAL EXAM: General: the patient is well developed and nourished. No acute distress. HEENT: Normocephalic, neck is supple, no carotid bruits. No mass. RESPIRATORY: Normal respiratory effort with symmetrical lung expansion. Lungs clear to auscultation. CARDIOVASCULAR: Regular rate and rhythm with no murmurs. S1, S2. ABDOMEN: Soft, nontender, normal bowel sound NEUROLOGICAL: MENTAL STATUS: Awake and alert. Oriented to person, place, time and general circumstances. Able to give personal history SPEECH, LANGUAGE, HIGHER CORTICAL FUNCTION: no aphasia or dysathria. CRANIAL NERVES: #2: Intact visual salazar to confrontation. The optic discs were sharp #3,4,6: Pupils are equal, round and reactive. EOMs full and conjugate. No nystagmus. #5: Facial sensation intact in all three divisions bilaterally. Mandibular strength intact. #7: Facial muscles symmetrical and strength intact. #8: Hearing grossly normal to voice. #9,10: Uvula and soft palate rise in the midline. Swallow and voice are normal. #11: Trapezius and sternomastoid strength intact bilaterally. #12: Tongue midline. No fasciculations or atrophy. SENSATION: Sensation to touch and pinprick is normal. MOTOR: Normal tone in the upper and lower extremity. Normal muscle bulk. No fasciculations. No abnormal movements or posturing. Muscle strength of the major groups in the upper extremities is 5/5. Muscle strength of the major groups in the lower extremities is 5/5. REFLEXES: Deep tendon reflexes normal and symmetrical. No pathological reflexes. CEREBELLAR/COORDINATION: Finger to nose and heel to araujo are normal bilaterally. GAIT/STATION: Unremarkable Labs/Diagnostic Data Labs Test 02/29/24 07:12 02/29/24 05:11 02/28/24 23:03 02/28/24 22:10 Range/Units Lactic Acid Level 0.9 0.4-2.0 mmol/L White Blood Count 9.5 4.4-10.8 10^3/uL Red Blood Count 5.80 4.5-5.90 10^6/uL Hemoglobin 12.9 L 13.5-17.5 g/dL Hematocrit 39.9 L 41.0-53.0 % Mean Corpuscular Volume 68.9 L 80.0-100.0 fL Mean Corpuscular Hemoglobin 22.2 L 28.0-32.0 pg Mean Corpuscular Hemoglobin Concent 32.2 32.0-36.0 g/dL Red Cell Distribution Width 22.6 H 11.8-14.3 % Platelet Count 199 140-450 10^3/uL Mean Platelet Volume 8.4 6.9-10.8 fL Neutrophils (%) (Auto) 75.2 37.0-80.0 % Lymphocytes (%) (Auto) 12.3 10.0-50.0 % Monocytes (%) (Auto) 12.3 H 0.0-12.0 % Eosinophils (%) (Auto) 0.1 0.0-7.0 % Basophils (%) (Auto) 0.1 0.0-2.0 % Neutrophils # (Auto) 7.1 1.6-8.6 10 ^3/uL Lymphocytes # (Auto) 1.2 0.4-5.4 10 ^3/uL Monocytes # (Auto) 1.2 0-1.3 10 ^3/uL Eosinophils # (Auto) 0 0-0.8 10 ^3/uL Basophils # (Auto) 0 0-0.2 10 ^3/uL Nucleated Red Blood Cells 0.2 % Prothrombin Time 11.5 9.3-11.8 sec Prothrombin Time INR 1.09 0.9-1.15 Activated Partial Thromboplast Time 24.2 L 24.5-34.5 SEC Sodium Level 139 136-145 mmol/L Potassium Level 3.7 3.5-5.1 mmol/L Chloride Level 106 98-107 mmol/L Carbon Dioxide Level 26 20-31 mmol/L Anion Gap 7 5-15 Blood Urea Nitrogen 16 9-23 mg/dL Creatinine 1.05 0.700-1.30 mg/dL Glomerular Filtration Rate Calc 77 >90 mL/min BUN/Creatinine Ratio 15.2 10.0-20.0 Serum Glucose 102 74-106 mg/dL Calcium Level 9.2 8.7-10.4 mg/dL Iron Level 99 65-175 ug/dL Total Iron Binding Capacity 294 250-425 ug/dL Percent Iron Saturation 33.7 20-55 % Ferritin 129.1 22-322 ng/mL Total Bilirubin 1.1 H 0.2-1.0 mg/dL Aspartate Amino Transferase (AST) 43 H 13-40 U/L Alanine Aminotransferase (ALT) 17 7-40 U/L Alkaline Phosphatase 64 46-116 U/L Total Protein 6.1 5.7-8.2 g/dL Albumin 3.8 3.2-4.8 g/dL Lipase 37 12-53 U/L Thyroid Stimulating Hormone (TSH) 1.29 0.55-4.78 uIU/mL Troponin I High Sensitivity 11 </=54 ng/L Test 02/28/24 22:05 02/28/24 21:00 Range/Units Blood Gas Specimen Type Arterial Blood Gas Sample Site Right radial Blood Gas Patient Temperature 37.0 Arterial Blood Date Drawn [id number] Arterial Blood pH 7.370 7.350-7.450 Arterial Blood Partial Pressure CO2 34.6 L 35.0-48.0 mmHg Arterial Blood Partial Pressure O2 55.8 L 83.0-108.0 mmHg Arterial Blood HCO3 19.6 L 21.0-28.0 mmol/L Arterial Blood Oxygen Saturation 87.4 L 94.0-98.0 % Arterial Blood Base Excess -4.9 L -2.0-3.0 mmol/L Arterial Blood Oxyhemoglobin 85.7 L 94.0-98.0 % Arterial Blood Carboxyhemoglobin 1.4 0.5-1.5 % Arterial Blood Methemoglobin 0.6 0.0-1.5 % Lino Test Yes Blood Gas Total Hemoglobin 13.70 13.5-17.5 g/dL Blood Gas Modality Room air FiO2 % 21.0 Urine Color Light-yellow Yellow Urine Clarity Clear Clear Urine pH 8.5 5.0-9.0 Urine Specific [place] 1.043 H 1.001-1.035 Urine Protein 1+ H Negative Urine Ketones 2+ H Negative Urine Blood Negative Negative /uL Urine Nitrite Negative Negative Urine Bilirubin Negative Negative Urine Urobilinogen Normal Negative mg/dL Urine Leukocyte Esterase Negative Negative /uL Urine RBC 3 0 - 3 /hpf Urine WBC <1 0 - 3 /hpf Urine Squamous Epithelial Cells Few <5 /hpf Urine Bacteria None seen None Seen /hpf Urine Glucose Normal Normal mg/dL Urine Opiates Screen Neg NEGATIVE Urine Fentanyl Screen Neg NEGATIVE Urine Barbiturates Screen Neg NEGATIVE Urine Phencyclidine Screen Neg NEGATIVE Urine Amphetamines Screen Neg NEGATIVE Urine Benzodiazepines Screen Neg NEGATIVE Urine Cocaine Screen Neg NEGATIVE Urine Cannabinoids Screen Pos NEGATIVE Plasma/Serum Blood Alcohol 4.3 <10 mg/dL Assessment Seizure disorder with seizure breakthrough Abdominal pain Plan/Recommendation Monitoring Supportive treatment Telemetry EEG Consider increase Keppra to 750 mg b.i.d. when he was ready Ativan for seizure breakthrough She was specialist on case More recommendation per clinical course Plan discussed with: Patient, Other LAUREL SANCHEZ MD Feb 29, 2024 08:54
[2024-02-29] MEDS ORDERED: LORazepam 2MG/ML-1ML VIAL IM PRN (10:00)
[2024-02-29] MEDS ORDERED: PANTOPRAZOLE 40 MG TAB PO SCH (10:00)
--- NOTE | 2024-02-29 10:21 | DVH ---
Procedure: LA NM HIDA SCAN Exam Date: 02/29/2024 08:57 AM Clinical History: possible hepatobiliary obstruction. Nuclear Medicine Hepatobiliary Scan. Technique: Following the intravenous administration of 6 mCi of technetium 99m labeled Choletec multiple planar abdominal planar images were obtained in anterior projection in 5 minute intervals for45 minutes . Ri ght lateral images were obtained at 45 minutes after injection. Findings: The liver appears grossly normal in size. There is no abnormal persistence of the cardiac or blood po ol activity. There is prompt visualization of the gallbladder and excretion of activity into the smal l bowel. Impression: Unremarkable hepatobiliary study without evidence of acute cholecystitis.
--- NOTE | 2024-02-29 10:22 | ECG ---
[facility] Test Date: 2024-02-28 Test Time: 19:55:51 Pat Name: DONALD BATES Department: ED Room: 0274T Gender: M Manager Security: BRANDT : 1955 Requested By: MACO CASTANON Order Number: [id number] Reading MD: Jaime Sharpe Measurements Intervals [place] Rate: 109 P: 0 [place]: 0 QRS: 76 QRSD: 90 T: 0 QT: 381 QTc: 514 Interpretive Statements Atrial fibrillation Ventricular tachycardia, unsustained Inferior infarct, acute (LCx) Electronically Signed On 03-02-2024 10:24:29 PST by Jaime Sharpe Please click the below link to view image of tracing.
--- NOTE | 2024-02-29 10:23 | ECG ---
[facility] Test Date: 2024-02-28 Test Time: 21:16:49 Pat Name: DONALD BATES Department: ED Room: 0274T Gender: M Community Pharmacist: BRANDT : 1955 Requested By: MACO CASTANON Order Number: [id number] Reading MD: Jaime Sharpe Measurements Intervals [place] Rate: 70 P: 71 [place]: 177 QRS: 82 QRSD: 90 T: -79 QT: 371 QTc: 401 Interpretive Statements Sinus rhythm Multiple premature complexes, vent & supraven Borderline right axis deviation Consider left ventricular hypertrophy Nonspecific T abnormalities, diffuse leads Electronically Signed On 03-02-2024 10:24:43 PST by Jaime Sharpe Please click the below link to view image of tracing.
[2024-02-29 10:46] VITALS: BP 159/90; PULSE 83; RESP 18; O2SAT 99
[2024-02-29] MEDS: ENOXAPARIN SOD 40 MG/0.4 ML SYRINGE SC SCH (11:17)
[2024-02-29] MEDS: PANTOPRAZOLE 40 MG/10 ML VIAL INJ IV SCH (11:18)
[2024-02-29] MEDS: LISINOPRIL 5 MG TAB PO SCH (11:19)
[2024-02-29] MEDS: levETIRAcetam 1000 mg/100ml 100 ML IV SCH (11:21)
[2024-02-29 13:00] VITALS: BP_SYST 114; BP_SYST 165; BP_DIAS 55; BP_DIAS 79; PULSE 84; RESP 18; RESP 84; TEMP 97.5; TEMP 97.9; O2SAT 17; O2SAT 99
--- NOTE | 2024-02-29 13:07 | DVHINCON2 ---
GI Consult Consult Note GI consult note Date of Consultation: 02/29/2024 Chief Complaint: Dilated CBD Referring Physician: Dr. Chavez H&P: 68-year-old male admitted with abdominal pain, nausea and vomiting for one day Patient had hiccups for one day after eating, and this triggered abdominal pain from his esophagus to epigastric area to lower abdomen. No abdominal pain at this time. No nausea or vomiting. No hematemesis. No diarrhea. No melena or red blood in stool Patient denies alcohol use. No history of hepatitis Colonoscopy more than 10 years ago unsure about results Past Medical History: DM,epilepsy Past Surgical History: Denies Social History: NO smoking, drinking ETOH and use of illegal drugs. Family History: Noncontributory Review of Systems: Constitutional: no fever, chill, weight loss HEENT: no eye pain, no hearing loss, no oral lesion, no scleral icterus Heart: no chest pain, no chest pressure Lung: no cough, no dyspnea with exertion Abdomen: see HPI Physical exam: General: NAD, AAOX3 Chest: lung salazar clear to auscultation Heart: RRR, no murmur Abdomen: non-distended, no tenderness to palpation, +BS Labs: Labs Test 02/29/24 07:12 02/29/24 05:11 02/28/24 23:03 02/28/24 22:10 Range/Units Lactic Acid Level 0.9 0.4-2.0 mmol/L White Blood Count 9.5 4.4-10.8 10^3/uL Red Blood Count 5.80 4.5-5.90 10^6/uL Hemoglobin 12.9 L 13.5-17.5 g/dL Hematocrit 39.9 L 41.0-53.0 % Mean Corpuscular Volume 68.9 L 80.0-100.0 fL Mean Corpuscular Hemoglobin 22.2 L 28.0-32.0 pg Mean Corpuscular Hemoglobin Concent 32.2 32.0-36.0 g/dL Red Cell Distribution Width 22.6 H 11.8-14.3 % Platelet Count 199 140-450 10^3/uL Mean Platelet Volume 8.4 6.9-10.8 fL Neutrophils (%) (Auto) 75.2 37.0-80.0 % Lymphocytes (%) (Auto) 12.3 10.0-50.0 % Monocytes (%) (Auto) 12.3 H 0.0-12.0 % Eosinophils (%) (Auto) 0.1 0.0-7.0 % Basophils (%) (Auto) 0.1 0.0-2.0 % Neutrophils # (Auto) 7.1 1.6-8.6 10 ^3/uL Lymphocytes # (Auto) 1.2 0.4-5.4 10 ^3/uL Monocytes # (Auto) 1.2 0-1.3 10 ^3/uL Eosinophils # (Auto) 0 0-0.8 10 ^3/uL Basophils # (Auto) 0 0-0.2 10 ^3/uL Nucleated Red Blood Cells 0.2 % Prothrombin Time 11.5 9.3-11.8 sec Prothrombin Time INR 1.09 0.9-1.15 Activated Partial Thromboplast Time 24.2 L 24.5-34.5 SEC Sodium Level 139 136-145 mmol/L Potassium Level 3.7 3.5-5.1 mmol/L Chloride Level 106 98-107 mmol/L Carbon Dioxide Level 26 20-31 mmol/L Anion Gap 7 5-15 Blood Urea Nitrogen 16 9-23 mg/dL Creatinine 1.05 0.700-1.30 mg/dL Glomerular Filtration Rate Calc 77 >90 mL/min BUN/Creatinine Ratio 15.2 10.0-20.0 Serum Glucose 102 74-106 mg/dL Calcium Level 9.2 8.7-10.4 mg/dL Iron Level 99 65-175 ug/dL Total Iron Binding Capacity 294 250-425 ug/dL Percent Iron Saturation 33.7 20-55 % Ferritin 129.1 22-322 ng/mL Total Bilirubin 1.1 H 0.2-1.0 mg/dL Aspartate Amino Transferase (AST) 43 H 13-40 U/L Alanine Aminotransferase (ALT) 17 7-40 U/L Alkaline Phosphatase 64 46-116 U/L Total Protein 6.1 5.7-8.2 g/dL Albumin 3.8 3.2-4.8 g/dL Lipase 37 12-53 U/L Thyroid Stimulating Hormone (TSH) 1.29 0.55-4.78 uIU/mL Troponin I High Sensitivity 11 </=54 ng/L Test 02/28/24 22:05 02/28/24 21:00 Range/Units Blood Gas Specimen Type Arterial Blood Gas Sample Site Right radial Blood Gas Patient Temperature 37.0 Arterial Blood Date Drawn [id number] Arterial Blood pH 7.370 7.350-7.450 Arterial Blood Partial Pressure CO2 34.6 L 35.0-48.0 mmHg Arterial Blood Partial Pressure O2 55.8 L 83.0-108.0 mmHg Arterial Blood HCO3 19.6 L 21.0-28.0 mmol/L Arterial Blood Oxygen Saturation 87.4 L 94.0-98.0 % Arterial Blood Base Excess -4.9 L -2.0-3.0 mmol/L Arterial Blood Oxyhemoglobin 85.7 L 94.0-98.0 % Arterial Blood Carboxyhemoglobin 1.4 0.5-1.5 % Arterial Blood Methemoglobin 0.6 0.0-1.5 % Lino Test Yes Blood Gas Total Hemoglobin 13.70 13.5-17.5 g/dL Blood Gas Modality Room air FiO2 % 21.0 Urine Color Light-yellow Yellow Urine Clarity Clear Clear Urine pH 8.5 5.0-9.0 Urine Specific [place] 1.043 H 1.001-1.035 Urine Protein 1+ H Negative Urine Ketones 2+ H Negative Urine Blood Negative Negative /uL Urine Nitrite Negative Negative Urine Bilirubin Negative Negative Urine Urobilinogen Normal Negative mg/dL Urine Leukocyte Esterase Negative Negative /uL Urine RBC 3 0 - 3 /hpf Urine WBC <1 0 - 3 /hpf Urine Squamous Epithelial Cells Few <5 /hpf Urine Bacteria None seen None Seen /hpf Urine Glucose Normal Normal mg/dL Urine Opiates Screen Neg NEGATIVE Urine Fentanyl Screen Neg NEGATIVE Urine Barbiturates Screen Neg NEGATIVE Urine Phencyclidine Screen Neg NEGATIVE Urine Amphetamines Screen Neg NEGATIVE Urine Benzodiazepines Screen Neg NEGATIVE Urine Cocaine Screen Neg NEGATIVE Urine Cannabinoids Screen Pos NEGATIVE Plasma/Serum Blood Alcohol 4.3 <10 mg/dL Imaging: CT abdomen pelvis Impression: 1. Suboptimal visualization due to motion and beam hardening artifacts. 2. No definite acute abdominopelvic abnormalities. Abdominal ultrasound IMPRESSION: Dilated common bile duct slightly greater than expected for patient's age. Concern for biliary obstruction consider further evaluation with HIDA scan or MRCP. HIDA Findings: The liver appears grossly normal in size. There is no abnormal persistence of the cardiac or blood pool activity. There is prompt visualization of the gallbladder and excretion of activity into the small bowel. Impression: Unremarkable hepatobiliary study without evidence of acute cholecystitis. Assessment: Abdominal pain improved Dilated common bile duct possible normal variation Plan: Discussed with Dr. Sibley CMP in a.m., hepatitis panel Clear liquid diet advance as tolerated continue observation, if pain persists or worsens consider MRCP Otherwise outpatient follow-up in GI clinic in 4-6 weeks Discussed plan with patient, at bedside, and RN Thank you for this consult Date of Service: Feb 29, 2024 Billing Provider: JOANA AVILES Common Visit Codes: CONSULT ONLY Consultation Codes: [id number] CONSULT <45MIN JOANA AVILES Feb 29, 2024 13:06
[2024-02-29] MEDS: amLODIPine BESYLATE 5 MG TAB PO ONE (15:25)
[2024-02-29 17:20] VITALS: BP 146/84; PULSE 51; RESP 18; TEMP 97.9; O2SAT 98
--- NOTE | 2024-02-29 17:49 | DVHSR ---
APPROVED REPORT EXAM: Two-dimensional and M-mode echocardiogram with Doppler and color Doppler. Blood Pressure: 102/78 mmHg INDICATION Chest Pain RISK FACTORS Height: 6', Weight: 170 DIMENSIONS LVDd4.8 (3.8-5.7cm)LA (2D)3.7 (1.9-4.0cm)Aortic Root3.6 (2.0-3.7cm) LVDs3.9 (2.5-4.0cm)LA (MM) (1.9-4.0cm)Aortic Cusp Exc2.0 (1.5-2.0cm) EF (%) 50.0 (55-70%)Rt. Atrium3.8 (1.9-4.0cm)Asc. Aorta cm IVSd0.9 (0.7-1.1cm)RV (D) (1.8-2.4cm) PWd1.1 (0.7-1.1cm) Mitral Valve MitralMitral Stenosis E wave0.80m/sMV Mean GR.mmHg A wave0.90m/sMV Peak GR.mmHg E/A ratio0.92D MVAcm2 Aortic Valve Aortic ValveAortic Stenosis V10.70m/Lian Mean GR.3mmHg V21.20m/Lian Peak GR.6mmHg LVOT Diameter2.5 (1.8-2.4cm)Doppler AVA2.86cm2 Pulmonic Valve V20.60m/s Conclusion Normal left ventricular size and dimension. Normal right ventricular systolic pressure estimated eje ction fraction 50%. There is a grade 1 diastolic dysfunction. Normal right ventricular size and dimension. Normal right ventricular systolic function. Normal biatrial size and dimension. Normal aortic valve structure and function. Normal mitral valve structure and function. Normal tricuspid valve structure and function. The pulmonary valve is grossly normal. No pericardial effusion.
[2024-02-29 20:00] VITALS: PULSE 81
[2024-02-29] MEDS ORDERED: LORazepam 2MG/ML-1ML VIAL IV PRN ×2 (20:15→21:00)
[2024-02-29 21:40] VITALS: BP 117/71
[2024-02-29] MEDS: levETIRAcetam 500 mg/100ml 100 ML IV SCH (23:16)
[2024-03-01] VITALS (7 sets, daily range): BP systolic 106–164; BP diastolic 64–87; PULSE 50–73; RESP 16–21; TEMP 36.9; O2SAT 94–99
[2024-03-01 06:30] LABS: Hemoglobin 12.3 g/dL (13.5-17.5); Neutrophils # (auto) 3.8 10 ^3/uL (1.6-8.6); Nucleated Red Blood Cells % 0.2 %
[2024-03-01 06:34] LABS: Basophils # (auto) 0.1 10 ^3/uL (0-0.2); Basophils % (auto) 0.9 % (0.0-2.0); Eosinophils # (auto) 0.1 10 ^3/uL (0-0.8); Eosinophils % (auto) 0.9 % (0.0-7.0); Hematocrit 38.4 % (41.0-53.0); Lymphocytes # (auto) 1.5 10 ^3/uL (0.4-5.4); Lymphocytes % (auto) 23.9 % (10.0-50.0); Mean Corpuscular Hemoglobin 22.3 pg (28.0-32.0); Mean Corpuscular Volume 69.5 fL (80.0-100.0); Monocytes # (auto) 0.7 10 ^3/uL (0-1.3); Monocytes % (auto) 11.9 % (0.0-12.0); Neutrophils % (auto) 62.4 % (37.0-80.0); Platelet Count (auto) 180 10^3/uL (140-450); Red Blood Cells 5.53 10^6/uL (4.5-5.90); Red Cell Distribution Width 22.7 % (11.8-14.3); White Blood Cell 6.1 10^3/uL (4.4-10.8)
[2024-03-01 06:47] LABS: Alanine Aminotransferase 21 U/L (7-40); Alkaline Phosphatase 63 U/L (46-116); Anion Gap 5 (5-15); BUN/Creatinine Ratio 16.2 (10.0-20.0); Blood Urea Nitrogen 16 mg/dL (9-23); Calcium 8.9 mg/dL (8.7-10.4); Carbon Dioxide 29 mmol/L (20-31); Glucose 106 mg/dL (74-106); Potassium 4.2 mmol/L (3.5-5.1); Sodium 142 mmol/L (136-145)
[2024-03-01 06:48] LABS: Albumin 3.6 g/dL (3.2-4.8); Chloride 108 mmol/L (98-107)
[2024-03-01 06:49] LABS: Bilirubin, Total 0.9 mg/dL (0.2-1.0); Total Protein 5.7 g/dL (5.7-8.2)
[2024-03-01 06:50] LABS: Aspartate Aminotransferase 49 U/L (13-40)
[2024-03-01 08:59] LABS: Hepatitis B Core Total AB Negative (Negative)
[2024-03-01] MEDS: amLODIPine BESYLATE 5 MG TAB PO SCH (09:32)
--- NOTE | 2024-03-01 09:34 | DVHDSRES ---
Discharge Summary Date of Admission Resident Creating Document: AUDRA GARCÍA RESIDENT Feb 28, 2024 at 23:04 Date of Discharge: Mar 01, 2024 Admitting Diagnosis Breakthrough seizure, Nausea and vomiting Labs/Diagnostic Data: Laboratory Results Test 03/01/24 05:36 02/29/24 07:12 02/29/24 05:11 02/28/24 23:03 White Blood Count 6.1 10^3/uL (4.4-10.8) Red Blood Count 5.53 10^6/uL (4.5-5.90) Hemoglobin 12.3 g/dL (13.5-17.5) Hematocrit 38.4 % (41.0-53.0) Mean Corpuscular Volume 69.5 fL (80.0-100.0) Mean Corpuscular Hemoglobin 22.3 pg (28.0-32.0) Mean Corpuscular Hemoglobin Concent 32.0 g/dL (32.0-36.0) Red Cell Distribution Width 22.7 % (11.8-14.3) Platelet Count 180 10^3/uL (140-450) Mean Platelet Volume 8.4 fL (6.9-10.8) Neutrophils (%) (Auto) 62.4 % (37.0-80.0) Lymphocytes (%) (Auto) 23.9 % (10.0-50.0) Monocytes (%) (Auto) 11.9 % (0.0-12.0) Eosinophils (%) (Auto) 0.9 % (0.0-7.0) Basophils (%) (Auto) 0.9 % (0.0-2.0) Neutrophils # (Auto) 3.8 10 ^3/uL (1.6-8.6) Lymphocytes # (Auto) 1.5 10 ^3/uL (0.4-5.4) Monocytes # (Auto) 0.7 10 ^3/uL (0-1.3) Eosinophils # (Auto) 0.1 10 ^3/uL (0-0.8) Basophils # (Auto) 0.1 10 ^3/uL (0-0.2) Nucleated Red Blood Cells 0.2 % Sodium Level 142 mmol/L (136-145) Potassium Level 4.2 mmol/L (3.5-5.1) Chloride Level 108 mmol/L (98-107) Carbon Dioxide Level 29 mmol/L (20-31) Anion Gap 5 (5-15) Blood Urea Nitrogen 16 mg/dL (9-23) Creatinine 0.99 mg/dL (0.700-1.30) Glomerular Filtration Rate Calc 82 mL/min (>90) BUN/Creatinine Ratio 16.2 (10.0-20.0) Serum Glucose 106 mg/dL (74-106) Calcium Level 8.9 mg/dL (8.7-10.4) Total Bilirubin 0.9 mg/dL (0.2-1.0) Aspartate Amino Transferase (AST) 49 U/L (13-40) Alanine Aminotransferase (ALT) 21 U/L (7-40) Alkaline Phosphatase 63 U/L (46-116) Total Protein 5.7 g/dL (5.7-8.2) Albumin 3.6 g/dL (3.2-4.8) Lactic Acid Level 0.9 mmol/L (0.4-2.0) Prothrombin Time 11.5 sec (9.3-11.8) Prothrombin Time INR 1.09 (0.9-1.15) Activated Partial Thromboplast Time 24.2 SEC (24.5-34.5) Iron Level 99 ug/dL (65-175) Total Iron Binding Capacity 294 ug/dL (250-425) Percent Iron Saturation 33.7 % (20-55) Ferritin 129.1 ng/mL (22-322) Lipase 37 U/L (12-53) Hepatitis B Core Total Antibody Negative (Negative) Thyroid Stimulating Hormone (TSH) 1.29 uIU/mL (0.55-4.78) Test 02/28/24 22:10 02/28/24 22:05 02/28/24 21:00 Troponin I High Sensitivity 11 ng/L (</=54) Blood Gas Specimen Type Arterial Blood Gas Sample Site Right radial Blood Gas Patient Temperature 37.0 Arterial Blood Date Drawn [id number] Arterial Blood pH 7.370 (7.350-7.450) Arterial Blood Partial Pressure CO2 34.6 mmHg (35.0-48.0) Arterial Blood Partial Pressure O2 55.8 mmHg (83.0-108.0) Arterial Blood HCO3 19.6 mmol/L (21.0-28.0) Arterial Blood Oxygen Saturation 87.4 % (94.0-98.0) Arterial Blood Base Excess -4.9 mmol/L (-2.0-3.0) Arterial Blood Oxyhemoglobin 85.7 % (94.0-98.0) Arterial Blood Carboxyhemoglobin 1.4 % (0.5-1.5) Arterial Blood Methemoglobin 0.6 % (0.0-1.5) Lino Test Yes Blood Gas Total Hemoglobin 13.70 g/dL (13.5-17.5) Blood Gas Modality Room air FiO2 % 21.0 Urine Color Light-yellow (Yellow) Urine Clarity Clear (Clear) Urine pH 8.5 (5.0-9.0) Urine Specific [place] 1.043 (1.001-1.035) Urine Protein 1+ (Negative) Urine Ketones 2+ (Negative) Urine Blood Negative /uL (Negative) Urine Nitrite Negative (Negative) Urine Bilirubin Negative (Negative) Urine Urobilinogen Normal mg/dL (Negative) Urine Leukocyte Esterase Negative /uL (Negative) Urine RBC 3 /hpf (0 - 3) Urine WBC <1 /hpf (0 - 3) Urine Squamous Epithelial Cells Few /hpf (<5) Urine Bacteria None seen /hpf (None Seen) Urine Glucose Normal mg/dL (Normal) Urine Opiates Screen Neg (NEGATIVE) Urine Fentanyl Screen Neg (NEGATIVE) Urine Barbiturates Screen Neg (NEGATIVE) Urine Phencyclidine Screen Neg (NEGATIVE) Urine Amphetamines Screen Neg (NEGATIVE) Urine Benzodiazepines Screen Neg (NEGATIVE) Urine Cocaine Screen Neg (NEGATIVE) Urine Cannabinoids Screen Pos (NEGATIVE) Plasma/Serum Blood Alcohol 4.3 mg/dL (<10) Other Laboratory Tests 03/01/24 05:36 Brief Hx & Hospital Course: Hospital course: Mr. Headley, a 68-year-old male with a history of hypertension and epilepsy, presented to the ED with sharp abdominal pain, nausea, and vomiting for two days. He reported recent marijuana abuse and had a seizure this morning, witnessed by his fiance. His social history includes smoking and marijuana use. He was monitored overnight, with no further seizures and normal neuro checks. His Keppra dosage was increased, and he received neurology and GI consults. He is hemodynamically stable and Discharged with his fiance and family. Medical conditions treated in hospital: #1 Severe SIRS could be due to intravascular fluid depletion: Patient remains RA, hemodynamically stable. all workup negative so far. #2 Cyclic vomiting syndrome: Intractable abdominal pain and vomiting likely due marijuana. marijuana cesation. GI input noted, IV pantoprazole change to oral pantoprazole daily For Four weeks. #3 Lactic acidosis likely due to dehydration Related intravascular fluid depletion: iv fluid, control of vomiting, subsided. #4 Active smoker: quit smoking discussion done for 11 minutes of smoking cessation. on nicotine patch. #5 Breakthrough seizure: Continue keppra loading, then oral keppra Started 750 b.i.d.. Neurology consult done appreciate input. seizure precaution. #6 Hypertensive heart disease: blood pressure control 140/90 or below target, well controlled. #7 Marijuana abuse: cessation counseling done. Preventative discussion done additional 10 minutes for Marijuana, drug abuse. #8 Microcytic hypochromic anemia: check fobt, iron panel and other possible source of bleeding/ iron deficiency. last colonoscopy not available. #9 Possible viral gastroenteritis: continue conservative management and hydration. No further need of IV antibiotics. #10 Intractable nauseas vomiting: po intolerance , after ondansetron patient is tolerating oral diet, no further nausea vomiting noted. #11 Hyperbilirubinemia with transaminitis: negative HIDA, possible hepatobiliarty pathology ruled out. mild dilatation in US and CT abdomen. Elevated mildly AST likely due to occasional alcohol use. Dilated common bile duct possible normal variation. #12 New onset of paroxysmal atrial fibrillation with resting heart rate in 50s (asymptomatic): TTE/echo unremarkable, no noted Organic pathology. EKG /telemetry: Chads Vasc score #13 DVT prophylaxis: Levonox 40mg/ brisk movement , no further need. Patient is mobile. #14 Asymptomatic bradycardia with resting heart rate in 50's: EKG and tele -ve for heart block, asymptomatic, with 6 min walk test a PCP: Yousif Pedraza, to follow in 1 week After discharge. needs further discussion on marijuana and smoking cessation at outpatient. Specialists: Follow up with Neurology, Cardiology as soon as possible. Medication at discharge: 1. Keppra 750 b.i.d. oral to continue. 2. Pantoprazole 40 mg daily morning for 28 days /4 weeks 3. Eliquis 5mg bid 4. Amlodipine 10 mg daily 5. Lisinopril 5mg daily. Case discussed with Dr. Robledo Discharge planning needed total 43 minutes of detailed discussion. Patient agreeable to the plan and discharge. Consults/Reason for consult Neurology-Seizure GI-Abdominal pain Operations or Procedures [address] [address] Ph: [phone] DIAGNOSTIC IMAGING Diagnostic Imaging Report : [id number] Signed PATIENT: DONALD HEADLEY ACCT: [id number] UNIT: [id number] : 1955 LOC: ER ROOM / BED: / AGE / SEX: 68 / M ADM STATUS: REG ER SERVICE 54 ORDERING PHYSICIAN: MACO CASTANON MD PROCEDURE(s): ABPLIV - CT AB PEL WITH IV CON ONLY REASON: abd pain ORDER NUMBER(s): [id number], ACCESSION NUMBER(s): [id number] Exam: CT CT AB PEL WITH IV CON ONLY History: abd pain Comparison Study: None TECHNIQUE: A digital land development project manager image was obtained. During the uneventful, intravenous administration of contrast material, multislice data acquisition was obtained through the abdomen and pelvis. The data set was subsequently reconstructed into axial images. Images reviewed on a wrist examination is an examination of axial and multiplanar reformations using a variety of window levels and settings. RADIATION DOSE: DLP 483.66 mGy.cm; CTDI vol 9.2 mGy. Findings: Suboptimal visualization due to motion and beam hardening artifacts. Lungs: The lung bases are clear. Heart: The visualized heart is unremarkable. No cardiomegaly or pericardial effusion. Liver: Unremarkable. Gallbladder: Unremarkable. Spleen: Unremarkable Pancreas: Unremarkable Adrenals: Unremarkable Kidneys: Left renal cyst. GI tract: Unremarkable : Unremarkable. Vasculature: Mild to moderate aortoiliac atherosclerosis. Lymphadenopathy: Absent Peritoneum: No ascites Musculoskeletal: Unremarkable Soft tissues: Unremarkable Impression: 1. Suboptimal visualization due to motion and beam hardening artifacts. 2. No definite acute abdominopelvic abnormalities. ATED BY: KELL EPSTEIN DO DICTATED DATE/TIME: 02/28/242133 SIGNED BY: KELL EPSTEIN DO SIGNED DATE/TIME: 02/28/242133 CC: [address] [address] Ph: [phone] DIAGNOSTIC IMAGING Diagnostic Imaging Report : [id number] Signed PATIENT: DONALD HEADLEY ACCT: [id number] UNIT: [id number] : 1955 LOC: [facility] ROOM / BED: [facility] / B AGE / SEX: 68 / M ADM STATUS: ADM IN SERVICE 0712 ORDERING PHYSICIAN: AUDRA GARCÍA PROCEDURE(s): GBNM - NM HIDA SCAN REASON: possible hepatobiliary obstruction. ORDER NUMBER(s): [id number], ACCESSION NUMBER(s): [id number] Procedure: NM NM HIDA SCAN Exam Date: 02/29/2024 08:57 AM Clinical History: possible hepatobiliary obstruction. Nuclear Medicine Hepatobiliary Scan. Technique: Following the intravenous administration of 6 mCi of technetium 99m labeled Choletec multiple planar abdominal planar images were obtained in anterior projection in 5 minute intervals for45 minutes . Right lateral images were obtained at 45 minutes after injection. Findings: The liver appears grossly normal in size. There is no abnormal persistence of the cardiac or blood pool activity. There is prompt visualization of the gallbladder and excretion of activity into the small bowel. Impression: Unremarkable hepatobiliary study without evidence of acute cholecystitis. ATED BY: ZULY ROSALES MD DICTATED DATE/TIME: 02/29/24 1019 SIGNED BY: ZULY ROSALES MD SIGNED DATE/TIME: 02/29/24 1019 CC: [place] [address] Ph: [phone] DIAGNOSTIC IMAGING Diagnostic Imaging Report : [id number] Signed PATIENT: DONALD HEADLEY ACCT: [id number] UNIT: [id number] : 1955 LOC: [facility] ROOM / BED: [address] [place] [address] / A AGE / SEX: 68 / M ADM STATUS: ADM IN SERVICE 2305 ORDERING PHYSICIAN: KYARA RODRIGUEZ PROCEDURE(s): ABDC - ABDOMEN COMPLETE SONOGRAM REASON: Hyperbilirubinemia ORDER NUMBER(s): [id number], ACCESSION NUMBER(s): [id number] INDICATION: Hyperbilirubinemia TECHNIQUE: Multiple real-time sonographic images of the abdomen were obtained. COMPARISON: None FINDINGS: The liver is homogenous in echogenicity. The liver measures 14cm. No intrahepatic biliary ductal dilatation is noted. The gallbladder wall measures 0.1 cm and is unremarkable. No gallstones or sludge is seen. The common duct measures 0.8 cm and is unremarkable. No pericholecystic fluid is noted. The right kidney measures 9.2cm. No hydronephrosis. The left kidney measures 11cm. No hydronephrosis. Left kidney cystic lesion measuring 1.1 cm. The spleen measures 7.5cm, within normal limits. The echogenicity is within normal limits. The pancreas is not well visualized due to obscuration from bowel gas. The visualized portions of the IVC and aorta are grossly unremarkable. IMPRESSION: Dilated common bile duct slightly greater than expected for patient's age. Concern for biliary obstruction consider further evaluation with HIDA scan or MRCP. ATED BY: CHITRA KEITH DO DICTATED DATE/TIME: 02/29/2443 SIGNED BY: CHITRA KEITH DO SIGNED DATE/TIME: 02/29/2443 CC: [place] [address] Ph: [phone] DIAGNOSTIC IMAGING Diagnostic Imaging Report : [id number] Signed PATIENT: DONALD HEADLEY ACCT: [id number] UNIT: [id number] : 1955 LOC: [facility] ROOM / BED: [address] [place] [address] AGE / SEX: 68 / M ADM STATUS: ADM IN SERVICE 58 ORDERING PHYSICIAN: KYARA RODRIGUEZ RESIDENT PROCEDURE(s): ECIDC - ECHO 2D MODE CARDIAC DOP REASON: chest pain ORDER NUMBER(s): [id number], ACCESSION NUMBER(s): [id number] APPROVED REPORT EXAM: Two-dimensional and M-mode echocardiogram with Doppler and color Doppler. Blood Pressure: 102/78 mmHg INDICATION Chest Pain RISK FACTORS Height: 6', Weight: 170 DIMENSIONS LVDd 4.8 (3.8-5.7cm) LA (2D) 3.7 (1.9-4.0cm) Aortic Root 3.6 (2.0- 3.7cm) LVDs 3.9 (2.5-4.0cm) LA (MM) (1.9-4.0cm) Aortic Cusp Exc 2.0 (1.5- 2.0cm) EF (%) 50.0 (55-70%) Rt. Atrium 3.8 (1.9-4.0cm) Asc. Aorta cm IVSd 0.9 (0.7-1.1cm) RV (D) (1.8-2.4cm) PWd 1.1 (0.7-1.1cm) Mitral Valve Mitral Mitral Stenosis E wave 0.80m/s MV Mean GR. mmHg A wave 0.90m/s MV Peak GR. mmHg E/A ratio 0.9 2D MVA cm2 Aortic Valve Aortic Valve Aortic Stenosis V1 0.70m/s AO Mean GR. 3mmHg V2 1.20m/s AO Peak GR. 6mmHg LVOT Diameter 2.5 (1.8-2.4cm) Doppler CASSIDY 2.86cm2 Pulmonic Valve V2 0.60m/s Conclusion Normal left ventricular size and dimension. Normal right ventricular systolic pressure estimated ejection fraction 50%. There is a grade 1 diastolic dysfunction. Normal right ventricular size and dimension. Normal right ventricular systolic function. Normal biatrial size and dimension. Normal aortic valve structure and function. Normal mitral valve structure and function. Normal tricuspid valve structure and function. The pulmonary valve is grossly normal. No pericardial effusion. SIGNED BY: GERI FUENTES MD SIGNED DATE/TIME: 02/29/24 8244 CC: Condition at Discharge: Fair Final Diagnosis/Problems List #1 Severe SIRS could be due to intravascular fluid depletion: Patient remains RA, hemodynamically stable. all workup negative so far. #2 Cyclic vomiting syndrome: Intractable abdominal pain and vomiting likely due marijuana. marijuana cesation. GI input noted, IV pantoprazole change to oral pantoprazole daily For Four weeks. #3 Lactic acidosis likely due to dehydration Related intravascular fluid depletion: iv fluid, control of vomiting, subsided. #4 Active smoker: quit smoking discussion done for 11 minutes of smoking cessation. on nicotine patch. #5 Breakthrough seizure: Continue keppra loading, then oral keppra Started 750 b.i.d.. Neurology consult done appreciate input. seizure precaution. #6 Hypertensive heart disease: blood pressure control 140/90 or below target, well controlled. #7 Marijuana abuse: cessation counseling done. Preventative discussion done additional 10 minutes for Marijuana, drug abuse. #8 Microcytic hypochromic anemia: check fobt, iron panel and other possible source of bleeding/ iron deficiency. last colonoscopy not available. #9 Possible viral gastroenteritis: continue conservative management and hydration. No further need of IV antibiotics. #10 Intractable nauseas vomiting: po intolerance , after ondansetron patient is tolerating oral diet, no further nausea vomiting noted. #11 Hyperbilirubinemia with transaminitis: negative HIDA, possible hepatobiliarty pathology ruled out. mild dilatation in US and CT abdomen. Elevated mildly AST likely due to occasional alcohol use. #12 Possible new onset of paroxysmal atrial fibrillation: TTE/echo unremarkable, no noted Organic pathology. EKG /telemetry: Chads Vasc score #13 DVT prophylaxis: Levonox 40mg/ brisk movement , no further need. Patient is mobile. Discharge Disposition: Home Discharge Instruct/Medications Diet: Cardiac 2g Na,low cholest Activity: No Restrictions, As Tolerated Follow Up/Referral: As above Medications: As above/as per MAY Discharge Statement: "Patient was advised to return to the ER or call 911 if any headaches, dizziness, shortness of breath, chest pain, abdominal pain, bleeding, fevers, or worsening of medical condition. Patient was counseled about treatment plan, medications, possible side effects, patientverbalized understanding. All questions were answered to the best of my ability. This discharge took greater then 30 minutes in planning, reviewing documentation, counseling the patient, and discussing with other team members." ASSESSMENT ASSESSMENT Assessment AUDRA GARCÍA RESIDENT Mar 01, 2024 09:34
[2024-03-01] MEDS: levETIRAcetam 500 MG TAB PO SCH (10:00)
[2024-03-01 11:31] LABS: Hepatitis A Total Antibody Positive (Negative); Hepatitis B Surface Antibody Positive (Negative); Hepatitis B Surface Antigen Negative (Negative); Hepatitis C Antibody Negative (Negative)
[2024-03-01] MEDS: amLODIPine BESYLATE 5 MG TAB PO ONE (18:12)
[2024-03-01] MEDS ORDERED: KEP500T PO (18:24)
[2024-03-01] MEDS ORDERED: APIX5TAB PO (18:24)
[2024-03-01] MEDS ORDERED: AMLO1TAB23 PO (18:24)
[2024-03-01] MEDS ORDERED: PANT40T PO (18:24)
[2024-03-01] MEDS ORDERED: LISI-275 PO (18:24)
[2024-03-01] MEDS ORDERED: APIXABAN 5 MG TAB PO SCH (22:00)
[2024-03-02] MEDS ORDERED: PANTOPRAZOLE 40 MG TAB PO SCH (06:00)
[2024-03-02] MEDS ORDERED: amLODIPine BESYLATE 5 MG TAB PO SCH (10:00)
--- NOTE | 2024-03-03 11:48 | DVHEEG2 ---
Neurology EEG Procedural Note Procedural Note EXAM DATE: 03/01/2024 REFERRING DOCTOR: Dr. Sanchez TECHNIQUE: Eighteen channels of EEG, 2 channels of EOG, and 1 channel of EKG were recorded using the International 10/20 system. CLINICAL DATA: The patient was referred for an EEG evaluation for the evidence of seizure disorder. MEDICATIONS: See chart BACKGROUND ACTIVITY: While the patient was awake, the background activity consisted of well regulated 10 Hz rhythmic waveforms, symmetrically distributed over both posterior quadrants and was reactive to eye opening. ACTIVATION: Hyperventilation: Not done Photic Stimulation: Not done Sleep: Noticed IMPRESSION: This is a normal EEG. No focal, lateralized, or epileptiform features are noted. If clinically indicated to rule out a seizure disorder, recommend repeat EEG with sleep deprivation. The EKG channel showed an irregular heart rate of 66 per [place] [address] LAUREL SANCHEZ MD Mar 03, 2024 11:48
== END 2024-03-01 18:45 | disposition home or self-care (01) | DRG 249 ==
LOC: ER 19:37 → EDBD 19:37 → OVERFLOW 23:04 → WEST WING 02-29 09:56 → TELE-WESTW 02-29 16:56
PROVIDERS: ADMIT Student in an Organized Health Care Education/Training Program; ATTEND Student in an Organized Health Care Education/Training Program
DX: A08.4 Viral intestinal infection, unspecified (principal); E87.20 Acidosis, unspecified; R65.10 Systemic inflammatory response syndrome (SIRS) of non-infectious origin without acute organ dysfunction; K83.8 Other specified diseases of biliary tract; I11.9 Hypertensive heart disease without heart failure; E86.0 Dehydration; D50.9 Iron deficiency anemia, unspecified; E11.9 Type 2 diabetes mellitus without complications; I48.0 Paroxysmal atrial fibrillation; F12.10 Cannabis abuse, uncomplicated; E80.6 Other disorders of bilirubin metabolism; G40.909 Epilepsy, unspecified, not intractable, without status epilepticus; Z87.891 Personal history of nicotine dependence; Z79.899 Other long term (current) drug therapy; Z79.4 Long term (current) use of insulin
CPT/HCPCS: 36415; 36600; 74177; 76700; 78226; 80053; 80307; 80320; 81001; 82728; 82805; 83540; 83550; 83605; 83690; 84443; 84484; 85025; 85610; 85730; 86704; 86706; 86708; 86803; 87040; 87086; 87340; 93005; 93306; 95819; G0378; J1885; J2405; J2470; J2543

== ENCOUNTER 2024-09-16 13:36 | Inpatient (IN) | payer OTHER, MEDICAID ==
[~2024-09-16] VITALS: Ht 182.9 cm; Wt 74.2 kg
[~2024-09-16 13:36] MED LIST: AMLO1TAB23 PO; APIX5TAB PO; KEP500T PO; LISI-275 PO; PANT40T PO
--- NOTE | 2024-09-16 13:43 | ED.PDOC ---
History of Present Illness HPI Comments 68-year-old male brought by paramedics because of seizure. He is altered. Witnessed by family. Seizure this morning. He does have a history of seizures for which he does not take his medication. He is supposed to take Keppra. History of hypertension diabetes. Blood sugar 228. Unable to get history from the patient. Time Seen by MD: 13:36 Reviewed Notes: Nurses Notes, Medications, Allergies Allergies: Coded Allergies: NO KNOWN ALLERGIES (Unverified , 02/28/24) Home Meds Active Scripts Pantoprazole Sodium Sesquihydr (Pantoprazole Sodium) 40 Mg Tab, 40 MG PO DAILY for 30 Days, #30 TAB Prov:TERESSA MAI MD 03/01/24 Lisinopril (Lisinopril) 5 Mg Tab, 5 MG PO DAILY for 30 Days, #30 TAB Prov:TERESSA MAI MD 03/01/24 Levetiracetam (KEPPRA TABLET) 500 Mg Tb, 750 MG PO BID for 30 Days, #90 TAB Prov:TERESSA MAI MD 03/01/24 Amlodipine Besylate (Amlodipine Besylate) 10 Mg Tab, 1 TAB PO DAILY, #30 TAB 1 Refill Prov:TERESSA MIA MD 03/01/24 Apixaban Base (ELIQUIS) 5 Mg Tab, 5 MG PO BID for 30 Days, #60 TAB Prov:TERESSA MAI MD 03/01/24 Information Source: Emergency Med Personnel Mode of Arrival: EMS Severity: Moderate Timing: Hours Duration: Since onset Past Medical History PAST MEDICAL HISTORY: DM, HTN, Seizures Surgical History: Denies all surgeries Family History Family History: Reviewed,noncontributory to illness Social History Smoker: Non-Smoker Alcohol: Denies ETOH Use Drugs: Denies Drug Use Lives In: Home Unable to Obtain due to: Altered Mental Status Physical Exam General Appearance: Moderate Distress HEENT: Normal ENT Inspection, Pharynx Normal, TMs Normal Neck: Full Range of Motion, Non-Tender, Normal, Normal Inspection Respiratory: Chest Non-Tender, Lungs Clear, No Accessory Muscle Use, No Respiratory Distress, Normal Breath Sounds Cardiovascular: No Edema, No JVD, No Murmur, No Gallop, Normal Peripheral Pulses, Regular Rate/Rhythm Breast Exam: Deferred Gastrointestinal: No Organomegaly, Non Tender, No Pulsatile Mass, Normal Bowel Sounds, Soft Genitalia: Deferred Pelvic: Deferred Rectal: Deferred Extremities: No calf tenderness, No pedal edema Musculoskeletal : Apperance: Normal Neurologic: Disoriented Cerebellar Function: NOT DONE Reflexes: NOT DONE Skin: Normal Color Lymphatic: No Adenopathy Was a procedure done? Was a procedure done?: No Differential Dx Considerations may include: Seizure Electrolyte imbalance X-Ray, Labs, Meds, VS Vital Signs Date Time Temp Pulse Resp B/P (MAP) Pulse Ox O2 Delivery O2 Flow Rate FiO2 09/16/24 17:09 101 167/87 09/16/24 16:00 103 20 147/122 (130) 91 09/16/24 14:15 97.6 89 20 165/118 (134) 100 97.6 09/16/24 14:04 98.8 118 18 195/100 (131) 97 98.8 Lab Test 09/16/24 16:19 09/16/24 14:09 Range/Units Urine Color Colorless Yellow Urine Clarity Turbid H Clear Urine pH 5.0 5.0-9.0 Urine Specific [place] 1.011 1.001-1.035 Urine Protein 1+ H Negative Urine Ketones Negative Negative Urine Blood 1+ H Negative /uL Urine Nitrite Negative Negative Urine Bilirubin Negative Negative Urine Urobilinogen Normal Negative mg/dL Urine Leukocyte Esterase Negative Negative /uL Urine RBC 17 0 - 3 /hpf Urine Microscopic WBC 1 0-3 /HPF Urine Squamous Epithelial Cells None seen <5 /hpf Urine Uric Acid Crystals Few None Seen /hpf Urine Bacteria None seen None Seen /hpf Urine Glucose 2+ H Normal mg/dL Urine Opiates Screen Neg NEGATIVE Urine Fentanyl Screen Neg NEGATIVE Urine Barbiturates Screen Neg NEGATIVE Urine Phencyclidine Screen Neg NEGATIVE Urine Amphetamines Screen Neg NEGATIVE Urine Benzodiazepines Screen Pos NEGATIVE Urine Cocaine Screen Neg NEGATIVE Urine Cannabinoids Screen Pos NEGATIVE White Blood Count 12.8 H 4.4-10.8 10^3/uL Red Blood Count 6.88 H 4.5-5.90 10^6/uL Hemoglobin 15.1 13.5-17.5 g/dL Hematocrit 48.6 41.0-53.0 % Mean Corpuscular Volume 70.7 L 80.0-100.0 fL Mean Corpuscular Hemoglobin 22.0 L 28.0-32.0 pg Mean Corpuscular Hemoglobin Concent 31.2 L 32.0-36.0 g/dL Red Cell Distribution Width 23.3 H 11.8-14.3 % Platelet Count 225 140-450 10^3/uL Mean Platelet Volume 8.4 6.9-10.8 fL Neutrophils (%) (Auto) 84.3 H 37.0-80.0 % Lymphocytes (%) (Auto) 10.7 10.0-50.0 % Monocytes (%) (Auto) 4.5 0.0-12.0 % Eosinophils (%) (Auto) 0.2 0.0-7.0 % Basophils (%) (Auto) 0.3 0.0-2.0 % Neutrophils # (Auto) 10.8 H 1.6-8.6 10 ^3/uL Lymphocytes # (Auto) 1.4 0.4-5.4 10 ^3/uL Monocytes # (Auto) 0.6 0-1.3 10 ^3/uL Eosinophils # (Auto) 0 0-0.8 10 ^3/uL Basophils # (Auto) 0 0-0.2 10 ^3/uL Nucleated Red Blood Cells 0.6 % Sodium Level 141 136-145 mmol/L Potassium Level 4.0 3.5-5.1 mmol/L Chloride Level 106 98-107 mmol/L Carbon Dioxide Level 18 L 20-31 mmol/L Anion Gap 17 H 5-15 Blood Urea Nitrogen 12 9-23 mg/dL Creatinine 1.33 H 0.700-1.30 mg/dL Glomerular Filtration Rate Calc 58 >90 mL/min BUN/Creatinine Ratio 9.0 L 10.0-20.0 Serum Glucose 196 H 74-106 mg/dL Calcium Level 9.9 8.7-10.4 mg/dL Troponin I High Sensitivity 9 </=54 ng/L Current Medications Medications (Trade) Dose Ordered Sig/Sergei Route Start Time Stop Time Status Last Admin Sodium Chloride 1,000 ml @ 1,000 mls/hr Q1H ONCE IV 09/16/24 14:00 09/16/24 14:59 DC 09/16/24 14:30 Sodium Chloride 1,000 ml @ 150 mls/hr Q6H40M ONCE IV 09/16/24 14:00 09/16/24 20:39 09/16/24 14:00 Lorazepam (Ativan Inj) 1 mg ONCE ONCE IV 09/16/24 14:15 09/16/24 14:16 DC 09/16/24 14:30 Midazolam HCl (Versed Injection) 1 mg ONCE ONCE IV 09/16/24 14:30 09/16/24 14:31 DC 09/16/24 14:45 Levetiracetam 100 ml @ 400 mls/hr ONCE ONCE IV 09/16/24 14:30 09/16/24 14:44 DC 09/16/24 14:45 Azithromycin 250 ml @ 125 mls/hr ONCE ONCE IV 09/16/24 15:30 09/16/24 17:29 09/16/24 16:48 Labetalol HCl (Labetalol HCl) 10 mg ONCE ONCE IV 09/16/24 15:30 09/16/24 15:31 DC 09/16/24 17:09 Lorazepam (Ativan Inj) 1 mg ONCE ONCE IV 09/16/24 16:00 09/16/24 16:01 DC 09/16/24 16:40 Diphenhydramine HCl (Benadryl Injection) 50 mg ONCE ONCE IV 09/16/24 16:30 09/16/24 16:31 DC 09/16/24 16:38 Haloperidol Lactate (Haldol) 10 mg ONCE ONCE IM 09/16/24 16:30 09/16/24 16:31 DC 09/16/24 16:38 Patient unconscious. Vitals stable. Unable to get history from the patient. No sign of any injury. Blood pressure elevated. He is not taking his medication. Was given Keppra. Blood sugar elevated. Establish intravenous access. Was given fluids for the blood sugar. Increased gap. Anaerobic metabolism. WBC slightly elevated. Blood culture. Lactic acid level. Was given Zosyn. Was given azithromycin. Chest x-ray does show pneumonia. Continue to monitor. [facility] approved inpatient admission [id number]. Time of 1ST Reevaluation: 13:43 Reevaluation 1ST: Unchanged Patient Education/Counseling: Pt Unresponsive Family Education/Counseling: No Family Present SEPSIS Sepsis Screen Physician Orders Chest Portable (09/16/24 13:52) Sodium Chloride 0.9% (09/16/24 14:00) Blood Culture (09/16/24 15:20) Lactic Acid W/ Reflex Order (09/16/24 15:20) Azithromycin 500mg/ 250ml (Zithromax 50 (09/16/24 15:30) Sodium Chloride 0.9% (09/16/24 15:30) Head Without Contrast (09/16/24 15:20) Insert Patten Catheter QSHIFT (09/16/24 16:00) Vital Signs Date Time Temp Pulse Resp B/P (MAP) Pulse Ox O2 Delivery O2 Flow Rate FiO2 09/16/24 17:09 101 167/87 09/16/24 16:00 103 20 147/122 (130) 91 09/16/24 14:15 97.6 89 20 165/118 (134) 100 97.6 09/16/24 14:04 98.8 118 18 195/100 (131) 97 98.8 Laboratory Tests Test 09/16/24 14:09 White Blood Count 12.8 10^3/uL (4.4-10.8) H Medications Medications Dose Ordered Sig/Sergei Route Start Time Stop Time Status Last Admin Dose Admin Azithromycin 250 ml @ 125 mls/hr ONCE ONCE IV 09/16/24 15:30 09/16/24 17:29 09/16/24 16:48 Diphenhydramine HCl 50 mg ONCE ONCE IV 09/16/24 16:30 09/16/24 16:31 DC 09/16/24 16:38 Haloperidol Lactate 10 mg ONCE ONCE IM 09/16/24 16:30 09/16/24 16:31 DC 09/16/24 16:38 Labetalol HCl 10 mg ONCE ONCE IV 09/16/24 15:30 09/16/24 15:31 DC 09/16/24 17:09 Levetiracetam 100 ml @ 400 mls/hr ONCE ONCE IV 09/16/24 14:30 09/16/24 14:44 DC 09/16/24 14:45 Lorazepam 1 mg ONCE ONCE IV 09/16/24 14:15 09/16/24 14:16 DC 09/16/24 14:30 Lorazepam 1 mg ONCE ONCE IV 09/16/24 16:00 09/16/24 16:01 DC 09/16/24 16:40 Midazolam HCl 1 mg ONCE ONCE IV 09/16/24 14:30 09/16/24 14:31 DC 09/16/24 14:45 Sodium Chloride 1,000 ml @ 150 mls/hr Q6H40M ONCE IV 09/16/24 14:00 09/16/24 20:39 09/16/24 14:00 Sodium Chloride 1,000 ml @ 1,000 mls/hr Q1H ONCE IV 09/16/24 14:00 09/16/24 14:59 DC 09/16/24 14:30 Departure 1 Departure Time of Disposition: 15:19 Impression: Primary Impression: Metabolic encephalopathy Additional Impressions: Hypertensive emergency Uncontrolled diabetes mellitus Qualified Codes: E13.65 - Other specified diabetes mellitus with hyperglycemia Sepsis, unspecified organism Qualified Codes: A41.9 - Sepsis, unspecified organism Pneumonia Qualified Codes: J18.9 - Pneumonia, unspecified organism Disposition: ADMITTED INPATIENT Admit to: Med Surg Condition: Guarded Critical Care Note Critical Care Time?: Yes (90 min-critical care time only) Stability Stability form required: No Heart Score Heart Score: Heart Score Response (Comments) Value History Slightly Suspicious 0 EKG Normal 0 Age >65 2 Risk Factors >3 or Hx ASHD 2 Troponin Normal limit 0 Total 4 ACE RAYGOZA MD Sep 16, 2024 13:43
[2024-09-16] MEDS: SODIUM CHLORIDE 0.9% 1,000 ML IV ONE ×5 (14:00→20:30)
[2024-09-16 14:14] VITALS: PULSE 111; RESP 16; O2SAT 96
[2024-09-16 14:29] LABS: Chloride 106 mmol/L (98-107); Potassium 4.0 mmol/L (3.5-5.1); Sodium 141 mmol/L (136-145)
[2024-09-16] MEDS: LORazepam 2MG/ML-1ML VIAL ONE (14:29)
[2024-09-16 14:30] LABS: Anion Gap 17 (5-15); Calcium 9.9 mg/dL (8.7-10.4)
[2024-09-16] MEDS: LORazepam 2MG/ML-1ML VIAL IV ONE ×2 (14:30→16:40)
--- NOTE | 2024-09-16 14:31 | DVH ---
CHEST RADIOGRAPH Indication: sob Technique: Single frontal view of the chest was obtained COMPARISON: None FINDINGS: Lines and Tubes: None Lungs: Increased interstitial prominence Pleura: No effusion. No pneumothorax. Cardiomediastinal contours: Cardiomegaly Bones: Unremarkable IMPRESSION: Mild pulmonary vascular congestion versus viral pneumonia.
[2024-09-16 14:35] LABS: BUN/Creatinine Ratio 9.0 (10.0-20.0); Blood Urea Nitrogen 12 mg/dL (9-23)
[2024-09-16 14:36] LABS: Carbon Dioxide 18 mmol/L (20-31); Glucose 196 mg/dL (74-106)
[2024-09-16] MEDS: MIDAZOLAM HCL 2MG/2ML 2ml VIAL (1mg/ml) IV ONE ×2 (14:45→16:00)
[2024-09-16] MEDS: levETIRAcetam 1000 mg/100ml 100 ML IV ONE (14:45)
[2024-09-16 14:50] LABS: Hematocrit 48.6 % (41.0-53.0); Hemoglobin 15.1 g/dL (13.5-17.5); Mean Corpuscular Hemoglobin 22.0 pg (28.0-32.0); Mean Corpuscular Volume 70.7 fL (80.0-100.0); Nucleated Red Blood Cells % 0.6 %
--- NOTE | 2024-09-16 16:12 | DVH ---
CLINICAL INFORMATION: Altered mental status. TECHNIQUE: Axial imaging was obtained through the brain without contrast. Coronal and sagittal reform atted images were obtained, reviewed, and stored. Images were reviewed in brain and bone windows. Al l CT scans at this medical facility are performed using dose modulation techniques as appropriate to a performed exam including the following: Automated exposure control was utilized; adjustment of the MA and/or KV according to patient size; and use of iterative reconstruction technique. CTDIvol = 57.6 9 mGy DLP = 926.44 mGy-cm COMPARISON: None FINDINGS: There is no acute intracranial hemorrhage. No mass effect or midline shift. Scattered areas of hypoattenuation are seen in the periventricular and subcortical white matter, which are nonspecif ic but most likely sequelae of small vessel ischemic disease. More focal areas of hypoattenuation are seen posteriorly involving the occipital lobes bilaterally and right parietal lobe, may be sequela o f chronic infarcts. The ventricles and sulci are within normal limits in size for age. Basal cisterns are patent. The calvarium is unremarkable. Paranasal sinuses and mastoid air cells are clear. IMPRESSION: 1. No CT evidence of acute intracranial abnormality. 2. Nonacute findings as described above.
[2024-09-16] MEDS: diphenhdrAMINE HCL 50 MG/1 ML VL IV ONE ×2 (16:38→22:27)
[2024-09-16] MEDS: HALOPERIDOL LACTATE 5 MG/ML INJ VIAL IM ONE (16:38)
[2024-09-16] MEDS: AZITHROMYCIN 500MG/ 250ML 250 ML IV ONE (16:48)
[2024-09-16 17:06] LABS: Urine Protein, UAD 1+ (Negative)
[2024-09-16 17:08] LABS: Cannabinoid Screen, Urine Pos (NEGATIVE)
[2024-09-16] MEDS: LABETALOL HCL 20 MG/4 ML VL IV ONE (17:09)
[2024-09-16 17:10] LABS: Amphetamine Screen, Urine Neg (NEGATIVE); Barbiturate Scree,Urine Neg (NEGATIVE); Benzodiazephine Screen, Urine Pos (NEGATIVE); Cocaine Screen, Urine Neg (NEGATIVE); Opiate Scree,Urine Neg (NEGATIVE); Phencyclidine Screen, Urine Neg (NEGATIVE)
--- NOTE | 2024-09-16 18:18 | ECG ---
[facility] Test Date: 2024-09-16 Test Time: 13:52:39 Pat Name: DONALD BATES Department: ED Room: 0278T Gender: M Azure Architect: yfn : [id number] Requested By: EMERGENCY EMERGENCY Order Number: [id number] Reading MD: Jaime Sharpe Measurements Intervals [place] Rate: 106 P: 54 ND: 179 QRS: 31 QRSD: 99 T: -88 QT: 317 QTc: 421 Interpretive Statements Sinus tachycardia Probable left atrial enlargement Borderline repolarization abnormality Electronically Signed On 09-20-2024 18:54:00 PDT by Jaime Sharpe Please click the below link to view image of tracing.
[2024-09-16 18:46] LABS: Lactic Acid w/Reflex 5.1 mmol/L (0.4-2.0)
[2024-09-16] MEDS ORDERED: ACETAMINOPHEN 325 MG TAB PO PRN (19:30)
[2024-09-16] MEDS ORDERED: ALBUTEROL SULF 2.5 MG/0.5ML(0.5%) NEB SOLN NEB PRN (19:30)
[2024-09-16] MEDS ORDERED: ONDANSETRON HCL 4 MG/2 ML VIAL IV PRN (19:30)
[2024-09-16] MEDS ORDERED: HYDROcodone-ACET 5/325MG TAB PO PRN (19:30)
[2024-09-16] MEDS: SODIUM CHLORIDE 0.9% 2,050 ML IV ONE (19:36)
[2024-09-16 19:40] VITALS: O2SAT 100
[2024-09-16] MEDS ORDERED: NITROGLYCERIN 0.4 MG SL TAB SL PRN (20:00)
[2024-09-16] MEDS ORDERED: MORPHINE SULFATE INJ 2 MG/ml SYRG IV PRN (20:00)
[2024-09-16] MEDS: ACETAMINOPHEN IV 1000 MG/100ML (10MG/ML) IV ONE (20:01)
[2024-09-16 20:37] VITALS: BP 124/57; PULSE 98; RESP 20; TEMP 97.5; O2SAT 96
[2024-09-16] MEDS: PIPERACILLIN-TAZOB 3.375GM 100 ML IV ONE (20:49)
[2024-09-16 21:00] VITALS: BP 103/60; PULSE 95; RESP 19; TEMP 101.1; O2SAT 95
[2024-09-16] MEDS ORDERED: LORazepam 2MG/ML-1ML VIAL IV PRN (21:45)
[2024-09-16] MEDS: levETIRAcetam 500 mg/100ml 100 ML IV SCH (22:33)
[2024-09-16] MEDS ORDERED: FERR1TAB8 PO (23:50)
[2024-09-16] MEDS ORDERED: LACT10SO3 PO (23:50)
[2024-09-16] MEDS ORDERED: LEVE750T3 PO (23:50)
[2024-09-17] VITALS (17 sets, daily range): BP systolic 124–153; BP diastolic 58–103; PULSE 41–99; RESP 15–18; TEMP 97.7–100.3; O2SAT 96–99
--- NOTE | 2024-09-17 04:07 | DVHHP2 ---
History of Present Illness Reason for Visit: Seizure History of Present Illness 68-year-old male presents for evaluation of seizure. Patient is spouse was at the bedside reports patient having a witnessed seizure at home and subsequently became altered. Patient is currently on soft restraints as he is trying to get out of the bed and pulling on lines. Watch reports patient being noncompliant with his antiseizure medications. No further history could be obtained at the moment. Past Medical History Hypertension and seizures Past Surgical History None Family History Noncontributory Smoke: No ALCOHOL: none Drugs: None Lives: with Family Review of Systems Review of Systems Review of systems are currently negative otherwise addressed in HPI. Allergies: Coded Allergies: NO KNOWN ALLERGIES (Unverified , 02/28/24) Medications Current Medications Medications Dose Ordered Sig/Sergei Route Start Time Stop Time Status Last Admin Dose Admin Ceftriaxone Sodium 50 ml @ 100 mls/hr DAILY@09 IV 09/17/24 09:00 Azithromycin 250 ml @ 125 mls/hr Q24H IV 09/17/24 17:00 Albuterol 2.5 mg Q6HPRN PRN NEB 09/16/24 19:30 Levetiracetam 100 ml @ 400 mls/hr BID IV 09/16/24 22:00 09/16/24 22:33 400 MLS/HR Pantoprazole Sodium 40 mg DAILY IV 09/17/24 10:00 Acetaminophen/ Hydrocodone Bitart 1 tab Q4HP PRN PO 09/16/24 19:30 Ondansetron HCl 4 mg Q4HP PRN IV 09/16/24 19:30 Acetaminophen 650 mg Q6HP PRN PO 09/16/24 19:30 Nitroglycerin 0.4 mg Q5MINP PRN SL 09/16/24 20:00 Morphine Sulfate 2 mg Q30M PRN IV 09/16/24 20:00 Lorazepam 1 mg Q5MINP PRN IV 09/16/24 21:45 Exam Vital Signs Vital Signs Date Time Temp Pulse Resp B/P (MAP) Pulse Ox O2 Delivery O2 Flow Rate FiO2 09/17/24 03:01 97.7 57 16 137/77 (97) 98 97.7 09/16/24 23:28 Room Air* 0 21 Exam Gen: 68-year-old male in mild distress Skin: Warm, dry, normal color and texture, no rash. HEENT: Normocephalic atraumatic, mucous membranes moist and pink. Neck: Cervical and supraclavicular nodes normal without enlargement, trachea is midline, thyroid gland is normal without masses. Pulmonary: Clear to auscultation and percussion bilaterally. Cardiac: Regular rate and rhythm. No murmur Abdomen: Soft, nontender, nondistended, bowel sounds present all 4 quadrants, no guarding, no rigidity, no organomegaly. Extremities: No cyanosis, clubbing, no edema Neuro: Lethargic Labs/Xrays ORDERING PHYSICIAN: ACE RAYGOZA MD PROCEDURE(s): CXRP - CHEST PORTABLE REASON: sob ORDER NUMBER(s): [id number], ACCESSION NUMBER(s): [id number] CHEST RADIOGRAPH Indication: sob Technique: Single frontal view of the chest was obtained COMPARISON: None FINDINGS: Lines and Tubes: None Lungs: Increased interstitial prominence Pleura: No effusion. No pneumothorax. Cardiomediastinal contours: Cardiomegaly Bones: Unremarkable IMPRESSION: Mild pulmonary vascular congestion versus viral pneumonia. ATED BY: SUPA GRANADO MD DICTATED DATE/TIME: 09/16/24 1424 ORDERING PHYSICIAN: ACE RAYGOZA MD PROCEDURE(s): HWOCT - HEAD WITHOUT CONTRAST REASON: altered ORDER NUMBER(s): [id number], ACCESSION NUMBER(s): [id number] CLINICAL INFORMATION: Altered mental status. TECHNIQUE: Axial imaging was obtained through the brain without contrast. Coronal and sagittal reformatted images were obtained, reviewed, and stored. Images were reviewed in brain and bone windows. All CT scans at this medical facility are performed using dose modulation techniques as appropriate to a performed exam including the following: Automated exposure control was utilized; adjustment of the MA and/or KV according to patient size; and use of iterative reconstruction technique. CTDIvol = 57.69 mGy DLP = 926.44 mGy-cm COMPARISON: None FINDINGS: There is no acute intracranial hemorrhage. No mass effect or midline shift. Scattered areas of hypoattenuation are seen in the periventricular and subcortical white matter, which are nonspecific but most likely sequelae of small vessel ischemic disease. More focal areas of hypoattenuation are seen posteriorly involving the occipital lobes bilaterally and right parietal lobe, may be sequela of chronic infarcts. The ventricles and sulci are within normal limits in size for age. Basal cisterns are patent. The calvarium is unremarkabl e. Paranasal sinuses and mastoid air cells are clear. IMPRESSION: 1. No CT evidence of acute intracranial abnormality. 2. Nonacute findings as described above. Labs Test 09/16/24 19:52 09/16/24 16:19 09/16/24 14:09 Range/Units Lactic Acid Level 1.6 0.4-2.0 mmol/L Urine Color Colorless Yellow Urine Clarity Turbid H Clear Urine pH 5.0 5.0-9.0 Urine Specific [place] 1.011 1.001-1.035 Urine Protein 1+ H Negative Urine Ketones Negative Negative Urine Blood 1+ H Negative /uL Urine Nitrite Negative Negative Urine Bilirubin Negative Negative Urine Urobilinogen Normal Negative mg/dL Urine Leukocyte Esterase Negative Negative /uL Urine RBC 17 0 - 3 /hpf Urine Microscopic WBC 1 0-3 /HPF Urine Squamous Epithelial Cells None seen <5 /hpf Urine Uric Acid Crystals Few None Seen /hpf Urine Bacteria None seen None Seen /hpf Urine Glucose 2+ H Normal mg/dL Urine Opiates Screen Neg NEGATIVE Urine Fentanyl Screen Neg NEGATIVE Urine Barbiturates Screen Neg NEGATIVE Urine Phencyclidine Screen Neg NEGATIVE Urine Amphetamines Screen Neg NEGATIVE Urine Benzodiazepines Screen Pos NEGATIVE Urine Cocaine Screen Neg NEGATIVE Urine Cannabinoids Screen Pos NEGATIVE White Blood Count 12.8 H 4.4-10.8 10^3/uL Red Blood Count 6.88 H 4.5-5.90 10^6/uL Hemoglobin 15.1 13.5-17.5 g/dL Hematocrit 48.6 41.0-53.0 % Mean Corpuscular Volume 70.7 L 80.0-100.0 fL Mean Corpuscular Hemoglobin 22.0 L 28.0-32.0 pg Mean Corpuscular Hemoglobin Concent 31.2 L 32.0-36.0 g/dL Red Cell Distribution Width 23.3 H 11.8-14.3 % Platelet Count 225 140-450 10^3/uL Mean Platelet Volume 8.4 6.9-10.8 fL Neutrophils (%) (Auto) 84.3 H 37.0-80.0 % Lymphocytes (%) (Auto) 10.7 10.0-50.0 % Monocytes (%) (Auto) 4.5 0.0-12.0 % Eosinophils (%) (Auto) 0.2 0.0-7.0 % Basophils (%) (Auto) 0.3 0.0-2.0 % Neutrophils # (Auto) 10.8 H 1.6-8.6 10 ^3/uL Lymphocytes # (Auto) 1.4 0.4-5.4 10 ^3/uL Monocytes # (Auto) 0.6 0-1.3 10 ^3/uL Eosinophils # (Auto) 0 0-0.8 10 ^3/uL Basophils # (Auto) 0 0-0.2 10 ^3/uL Nucleated Red Blood Cells 0.6 % Sodium Level 141 136-145 mmol/L Potassium Level 4.0 3.5-5.1 mmol/L Chloride Level 106 98-107 mmol/L Carbon Dioxide Level 18 L 20-31 mmol/L Anion Gap 17 H 5-15 Blood Urea Nitrogen 12 9-23 mg/dL Creatinine 1.33 H 0.700-1.30 mg/dL Glomerular Filtration Rate Calc 58 >90 mL/min BUN/Creatinine Ratio 9.0 L 10.0-20.0 Serum Glucose 196 H 74-106 mg/dL Calcium Level 9.9 8.7-10.4 mg/dL Troponin I High Sensitivity 9 </=54 ng/L Assessment/Plan Assessment/Plan Assessment Metabolic encephalopathy Possible pneumonia Hypertensive urgency Seizure activity Acute kidney injury Plan Admit the patient to telemetry to the hospitalist Rocephin/azithromycin Maintenance IV fluids Resume home medications Continue treatment per orders. Plan discussed with: Other My Orders Orders - SELVIN GUARDADO AGACN Procedure Category Date Status Time Ceftriaxone 1gm/50ml PHA 09/17/24 In Process D5w (Rocephin) 09:00 Azithromycin 500mg/ PHA 09/17/24 In Process 250ml (Zithromax 50 17:00 Sodium Chloride 0.9% PHA 09/16/24 In Process 19:30 Albuterol Medneb PHA 09/16/24 In Process (Ventolin Medneb) 19:30 Levetiracetam 500 PHA 09/16/24 In Process Mg/100ml (Levetiraceta 22:00 Seizure Precautions DASHA 09/16/[address] 19:18 Pantoprazole PHA 09/17/24 In Process (Protonix) 10:00 Hydrocodone-Acet PHA 09/16/24 In Process 5/325mg Tab ([place] 19:30 Ondansetron Hcl PHA 09/16/24 In Process (Zofran) 19:30 Complete Blood Count LAB 09/17/24 Logged 04:00 Comprehensive LAB 09/17/24 Logged Metabolic Panel 04:00 Cardiac DIET 09/17/24 Transmitted Diet-2gna,Lofat,Lochol Breakfast Condition: Serious DASHA 09/16/24 In Process 19:18 Acetaminophen Tablet PHA 09/16/24 In Process (Tylenol Tablet) 19:30 Bedrest With Bathroom DASHA 09/16/24 In Process Privileg 19:18 Admit ADMIT 09/16/24 Transmitted 19:49 Nitroglycerin PHA 09/16/24 In Process Sublingual (Ntrostat 20:00 Morphine Sulfate PHA 09/16/24 In Process Injection 20:00 Stat Ekg For Chest DASHA 09/16/24 In Process Pain 19:49 Notify Md Of Changes DASHA 09/16/24 In Process From Base 19:49 Technology Sales Specialist For DASHA 09/16/24 In Process 24 Hours 19:49 Emergency Dysrhythmia DASHA 09/16/24 In Process Protocol 19:49 Rhythm Strips Once DASHA 09/16/24 In Process Every Shift 19:49 Oxygen By Nasal RT 09/16/24 Transmitted Cannula 19:49 Lorazepam 2mg/Ml Inj PHA 09/16/24 In Process (Ativan Inj) 21:45 Date of Service: Sep 16, 2024 Billing Provider: SELVIN GUARDADO Common Visit Codes: [id number] INP/OBS CARE (HIGH) SELVIN GUARDADO Sep 17, 2024 04:07
[2024-09-17 06:49] LABS: Hemoglobin 13.4 g/dL (13.5-17.5)
[2024-09-17 06:53] LABS: Hematocrit 41.5 % (41.0-53.0); Mean Corpuscular Hemoglobin 22.3 pg (28.0-32.0); Mean Corpuscular Volume 68.8 fL (80.0-100.0); Nucleated Red Blood Cells % 0.1 %
[2024-09-17 07:21] LABS: Alanine Aminotransferase 19 U/L (7-40); Albumin 4.4 g/dL (3.2-4.8); Alkaline Phosphatase 59 U/L (46-116); Anion Gap 12 (5-15); BUN/Creatinine Ratio 9.5 (10.0-20.0); Blood Urea Nitrogen 10 mg/dL (9-23); Calcium 9.3 mg/dL (8.7-10.4); Carbon Dioxide 25 mmol/L (20-31); Sodium 145 mmol/L (136-145); Total Protein 6.8 g/dL (5.7-8.2)
[2024-09-17 07:22] LABS: Bilirubin, Total 1.0 mg/dL (0.2-1.0)
[2024-09-17 07:23] LABS: Chloride 108 mmol/L (98-107); Glucose 138 mg/dL (74-106); Potassium 3.3 mmol/L (3.5-5.1)
[2024-09-17 08:46] LABS: Anisocytosis Slight
[2024-09-17 08:54] LABS: Ovalocytes FEW
[2024-09-17] MEDS: cefTRIAXone 1GM/50ML D5W 50 ML IV SCH (09:13)
[2024-09-17] MEDS: PANTOPRAZOLE 40 MG/10 ML VIAL INJ IV SCH (09:13)
--- NOTE | 2024-09-17 12:09 | DVHPN2 ---
Reviewed: Care Plan, H&P, Labs, Medications, Previous Orders, Radiology Changes from previous H/P or p: No Changes Objective Vitals Vital Signs Date Time Temp Pulse Resp B/P (MAP) Pulse Ox O2 Delivery O2 Flow Rate FiO2 09/17/24 11:23 99.7 99.7 09/17/24 10:30 61 16 139/77 (97) 98 09/17/24 08:00 Room Air* 0 21 Intake/Output Intake and Output 09/17/24 07:00 Intake Total 2450 ml Output Total 4200 ml Balance -1750 ml Intake Oral 0 ml IV Total 2450 ml Output Urine Total 4200 ml Medications Current Medications Medications Dose Ordered Sig/Sergei Route Start Time Stop Time Status Last Admin Dose Admin Ceftriaxone Sodium 50 ml @ 100 mls/hr DAILY@09 IV 09/17/24 09:00 09/17/24 09:13 100 MLS/HR Azithromycin 250 ml @ 125 mls/hr Q24H IV 09/17/24 17:00 Albuterol 2.5 mg Q6HPRN PRN NEB 09/16/24 19:30 Levetiracetam 100 ml @ 400 mls/hr BID IV 09/16/24 22:00 09/17/24 09:13 400 MLS/HR Pantoprazole Sodium 40 mg DAILY IV 09/17/24 10:00 09/17/24 09:13 40 MG Acetaminophen/ Hydrocodone Bitart 1 tab Q4HP PRN PO 09/16/24 19:30 Ondansetron HCl 4 mg Q4HP PRN IV 09/16/24 19:30 Acetaminophen 650 mg Q6HP PRN PO 09/16/24 19:30 Nitroglycerin 0.4 mg Q5MINP PRN SL 09/16/24 20:00 Morphine Sulfate 2 mg Q30M PRN IV 09/16/24 20:00 Lorazepam 1 mg Q5MINP PRN IV 09/16/24 21:45 Laboratory Results Laboratory Tests 09/17/24 06:06 Chemistry Test 09/16/24 14:09 09/17/24 06:06 Calcium Level 9.9 mg/dL (8.7-10.4) 9.3 mg/dL (8.7-10.4) Albumin 4.4 g/dL (3.2-4.8) Total Protein 6.8 g/dL (5.7-8.2) LFT Test 09/17/24 06:06 Alanine Aminotransferase (ALT) 19 U/L (7-40) Alkaline Phosphatase 59 U/L (46-116) Aspartate Amino Transferase (AST) 78 U/L (13-40) H Total Bilirubin 1.0 mg/dL (0.2-1.0) Urinalysis Test 09/16/24 16:19 Urine Color Colorless (Yellow) Urine Clarity Turbid (Clear) H Urine pH 5.0 (5.0-9.0) Urine Specific [place] 1.011 (1.001-1.035) Urine Protein 1+ (Negative) H Urine Ketones Negative (Negative) Urine Blood 1+ /uL (Negative) H Urine Nitrite Negative (Negative) Urine Bilirubin Negative (Negative) Urine Urobilinogen Normal mg/dL (Negative) Urine Leukocyte Esterase Negative /uL (Negative) Urine RBC 17 /hpf (0 - 3) Urine Microscopic WBC 1 /HPF (0-3) Urine Squamous Epithelial Cells None seen /hpf (<5) Urine Uric Acid Crystals Few /hpf (None Seen) Urine Bacteria None seen /hpf (None Seen) Urine Glucose 2+ mg/dL (Normal) H Labs and/or images reviewed: Labs reviewed by me, Image(s) reviewed by me Assessment/Plan Assessment/Plan Breakthrough seizures: Ativan p.r.n., Minh, seizure precautions, Neurology consult for Dr. Aburto, CT head negative Sepsis with the elevated white count secondary to possible aspiration pneumonia Acute metabolic encephalopathy Acute lactic acidosis Postictal state Possible aspiration pneumonia: Rocephin azithromycin Hypertension Diabetes History of seizures Noncompliance Patient is full code Time spent 65 minutes Advanced care planning time 20 minutes Patient is not stable for transfer to [place] Plan discussed with: Patient My Orders Orders - SOLOMON AVILES MD Procedure Category Date Status Time * Neurology Consult CONS 09/17/24 Verified 12:00 Date of Service: Sep 17, 2024 Billing Provider: SOLOMON AVILES MD Common Visit Codes: [id number] CARE 30-74 MIN SOLOMON AVILES MD Sep 17, 2024 12:09
[2024-09-17] MEDS: POTASSIUM CHL 20MEQ/100ML 100 ML IV SCH (12:50)
[2024-09-17] MEDS: AZITHROMYCIN 500MG/ 250ML 250 ML IV SCH (16:54)
--- NOTE | 2024-09-17 20:51 | DVHINCON2 ---
Date of service: Sep 17, [address] Scanlon Reason for Consultation Breakthrough seizure History of Present Illness Mr. 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 According to ER note, the patient had a seizure in the morning on 09/16/2024. He relates Keppra but he does not remember how much he was on. According to ER note, the patient was supposed but did not not take Keppra at home. The external reconciled medication list included Keppra 750 mg b.i.d. According to my dictation note dated on 02/29/2024, he had seizure disorder since 1998, he had complete amnesia about the seizure symptoms, and there was no warning/aura before the seizure, the seizure typically happened when he was asl eep. He reports stress caused his seizure. According to his friend, it was a event with shaking all over body, eyes rolling back, slight increased saliva, he had had urinary continence, but no biting or oral trauma. He had 3 seizures in 2023. He denied symptoms of olfactory hallucination or confusion spells [phone], no answer [phone], no answer. 123 UDS, 09/16/2024: Benzo, cannabinoids Urinalysis, 09/16/2024: WBC: 1, urine leukocyte esterase: Negative WBC/HB/PLT/MCV, 09/17/2024: 13.5/30.4/168/68.8 CMP, 09/17/2024: AST: 78 Lactic acid, 09/16/2024: 5.1, 1.6 Iron profile, 02/29/2024: Unremarkable TBI/AST/ALT/AP, 02/29/2024: 1.1/43/17/64 TSH, 02/28/2024: 1.29 EEG, 03/01/2025: Normal Abdominal ultrasound, 02/28/2025: Unremarkable hepatobiliary study without evidence of acute cholecystitis. CT head, 09/16/2024: 1. No CT evidence of acute intracranial abnormality. 2. Nonacute findings as described above Abdominal/pelvis CT, 02/28/2024: 1. Suboptimal visualization due to motion and beam hardening artifacts. 2. No definite acute abdominopelvic abnormalities (Mo re focal areas of hypoattenuation are seen posteriorly involving the occipital lobes bilaterally and right parietal lobe, may be sequela of chronic infarcts.) Past Medical History Hypertension, diabetes, seizure Past Surgical History Cataract surgery, hernia repair Family History: Cardiovascular disease G8 FATHER Family History Heart disease Social History He smokes tobacco, he was the marijuana, otherwise no problem with alcohol or drug Allergies: Coded Allergies: NO KNOWN ALLERGIES (Unverified , 02/28/24) Home Meds Active Scripts Pantoprazole Sodium Sesquihydr (Pantoprazole Sodium) 40 Mg Tab, 40 MG PO DAILY for 30 Days, #30 TAB Prov:TERESSA MAI MD 03/01/24 Lisinopril (Lisinopril) 5 Mg Tab, 5 MG PO DAILY for 30 Days, #30 TAB Prov:TERESSA MAI MD 03/01/24 Levetiracetam (KEPPRA TABLET) 500 Mg Tb, 750 MG PO BID for 30 Days, #90 TAB Prov:TERESSA MAI MD 03/01/24 Amlodipine Besylate (Amlodipine Besylate) 10 Mg Tab, 1 TAB PO DAILY, #30 TAB 1 Refill Prov:TEERSSA MAI MD 03/01/24 Apixaban Base (ELIQUIS) 5 Mg Tab, 5 MG PO BID for 30 Days, #60 TAB Prov:TERESSA MAI MD 03/01/24 Reported Medications Lactulose (Lactulose) 10 Gm/15 Ml Valeria, ML PO 09/16/24 Levetiracetam (Levetiracetam) 750 Mg Tab, 1 TAB PO BID 09/16/24 Ferrous Sulfate (Gnp Iron) 325 Mg Tab, 1 TAB PO DAILY 09/16/24 Current Medications Current Medications Medications (Trade) Dose Ordered Sig/Sergei Route PRN Reason Start Time Stop Time Status Last Admin Ceftriaxone Sodium 50 ml @ 100 mls/hr DAILY@09 IV 09/17/24 09:00 09/17/24 09:13 Azithromycin 250 ml @ 125 mls/hr Q24H IV 09/17/24 17:00 09/17/24 16:54 Levetiracetam 100 ml @ 400 mls/hr BID IV 09/16/24 22:00 09/17/24 09:13 Pantoprazole Sodium (Protonix) 40 mg DAILY IV 09/17/24 10:00 09/17/24 09:13 Lorazepam (Ativan Inj) 1 mg Q5MINP PRN IV SEIZURES 09/16/24 21:45 Potassium Chloride 100 ml @ 50 mls/hr Q2H IV 09/17/24 12:30 09/17/24 16:29 DC 09/17/24 14:49 Review of Systems As above, the other systems are negative Vital Signs Vital Signs Date Time Temp Pulse Resp B/P (MAP) Pulse Ox O2 Delivery O2 Flow Rate FiO2 09/17/24 17:00 98.6 99 18 136/63 (87) 96 98.6 09/17/24 08:00 Room Air* 0 21 Physical Exam GENERAL EXAM: General: the patient is well developed and nourished. No acute distress. HEENT: Normocephalic, neck is supple, no carotid bruits. No mass. RESPIRATORY: Normal respiratory effort with symmetrical lung expansion. Lungs clear to auscultation. CARDIOVASCULAR: Regular rate and rhythm with no murmurs. S1, S2. ABDOMEN: Soft, nontender, normal bowel sound NEUROLOGICAL: MENTAL STATUS: Awake and alert. Oriented to person, place, time and general circumstances. Able to give personal history SPEECH, LANGUAGE, HIGHER CORTICAL FUNCTION: no aphasia or dysathria. CRANIAL NERVES: #2: Intact visual salazar to confrontation. The optic discs were sharp #3,4,6: Pupils are equal, round and reactive. EOMs full and conjugate. No nystagmus. #5: Facial sensation intact in all three divisions bilaterally. Mandibular strength intact. #7: Facial muscles symmetrical and strength intact. #8: Hearing grossly normal to voice. #9,10: Uvula and soft palate rise in the midline. Swallow and voice are normal. #11: Trapezius and sternomastoid strength intact bilaterally. #12: Tongue midline. No fasciculations or atrophy. SENSATION: Sensation to touch and pinprick is normal. MOTOR: Normal tone in the upper and lower extremity. Normal muscle bulk. No fasciculations. No abnormal movements or posturing. Muscle strength of the major groups in the upper extremities is 5/5. Muscle strength of the major groups in the lower extremities is 5/5. REFLEXES: Deep tendon reflexes normal and symmetrical. No pathological reflexes. CEREBELLAR/COORDINATION: Finger to nose and heel to araujo are normal bilatera lly. GAIT/STATION: Unremarkable Labs/Diagnostic Data Labs Test 09/17/24 06:06 09/16/24 19:52 09/16/24 16:19 09/16/24 14:09 Range/Units White Blood Count 13.5 H 4.4-10.8 10^3/uL Red Blood Count 6.03 H 4.5-5.90 10^6/uL Hemoglobin 13.4 L 13.5-17.5 g/dL Hematocrit 41.5 # 41.0-53.0 % Mean Corpuscular Volume 68.8 L 80.0-100.0 fL Mean Corpuscular Hemoglobin 22.3 L 28.0-32.0 pg Mean Corpuscular Hemoglobin Concent 32.4 32.0-36.0 g/dL Red Cell Distribution Width 22.6 H 11.8-14.3 % Platelet Count 168 140-450 10^3/uL Mean Platelet Volume 8.5 6.9-10.8 fL Neutrophils (%) (Auto) 88.7 H 37.0-80.0 % Lymphocytes (%) (Auto) 4.6 L 10.0-50.0 % Monocytes (%) (Auto) 6.5 0.0-12.0 % Eosinophils (%) (Auto) 0.0 0.0-7.0 % Basophils (%) (Auto) 0.2 0.0-2.0 % Neutrophils # (Auto) 12.0 H 1.6-8.6 10 ^3/uL Lymphocytes # (Auto) 0.6 0.4-5.4 10 ^3/uL Monocytes # (Auto) 0.9 0-1.3 10 ^3/uL Eosinophils # (Auto) 0 0-0.8 10 ^3/uL Basophils # (Auto) 0 0-0.2 10 ^3/uL Nucleated Red Blood Cells 0.1 % Platelet Estimate Adequate Hypochromasia (manual) Moderate Poikilocytosis (manual) Slight Anisocytosis (manual) Slight Microcytosis Moderate Target Cells Few Ovalocytes Few Sodium Level 145 136-145 mmol/L Potassium Level 3.3 L 3.5-5.1 mmol/L Chloride Level 108 H 98-107 mmol/L Carbon Dioxide Level 25 20-31 mmol/L Anion Gap 12 5-15 Blood Urea Nitrogen 10 9-23 mg/dL Creatinine 1.05 0.700-1.30 mg/dL Glomerular Filtration Rate Calc 77 >90 mL/min BUN/Creatinine Ratio 9.5 L 10.0-20.0 Serum Glucose 138 H 74-106 mg/dL Calcium Level 9.3 8.7-10.4 mg/dL Total Bilirubin 1.0 0.2-1.0 mg/dL Aspartate Amino Transferase (AST) 78 H 13-40 U/L Alanine Aminotransferase (ALT) 19 7-40 U/L Alkaline Phosphatase 59 46-116 U/L Total Protein 6.8 5.7-8.2 g/dL Albumin 4.4 3.2-4.8 g/dL Lactic Acid Level 1.6 0.4-2.0 mmol/L Urine Color Colorless Yellow Urine Clarity Turbid H Clear Urine pH 5.0 5.0-9.0 Urine Specific [place] 1.011 1.001-1.035 Urine Protein 1+ H Negative Urine Ketones Negative Negative Urine Blood 1+ H Negative /uL Urine Nitrite Negative Negative Urine Bilirubin Negative Negative Urine Urobilinogen Normal Negative mg/dL Urine Leukocyte Esterase Negative Negative /uL Urine RBC 17 0 - 3 /hpf Urine Microscopic WBC 1 0-3 /HPF Urine Squamous Epithelial Cells None seen <5 /hpf Urine Uric Acid Crystals Few None Seen /hpf Urine Bacteria None seen None Seen /hpf Urine Glucose 2+ H Normal mg/dL Urine Opiates Screen Neg NEGATIVE Urine Fentanyl Screen Neg NEGATIVE Urine Barbiturates Screen Neg NEGATIVE Urine Phencyclidine Screen Neg NEGATIVE Urine Amphetamines Screen Neg NEGATIVE Urine Benzodiazepines Screen Pos NEGATIVE Urine Cocaine Screen Neg NEGATIVE Urine Cannabinoids Screen Pos NEGATIVE Troponin I High Sensitivity 9 </=54 ng/L Microbiology Date/Time Source Procedure Growth Status 09/16/24 18:55 Blood Blood Culture - Preliminary NO GROWTH AFTER 24 HOURS OF INCUBATION. Resulted Assessment Seizure disorder with seizure breakthrough Grand mal seizure Altered mental status Prolonged postictal confusion Rule out status epileptics ? COGNITIVE DYSFUNCTION Abnormal CT brain scan, rule out stroke Plan/Recommendation Monitoring Supportive treatment Telemetry Seizure precaution Vitamin B12, folic acid, TSH EEG MRI head Keppra 750 mg b.i.d Ativan for seizure breakthrough GI prophylaxis DMV report in the chart Follow up with his [place] doctors on discharge More recommendation per clinical course Prognosis: Poor This medical document was created using an electronic medical record system with [employer] dictation system. Although this document has been carefully reviewed, there may still be some phonetic and typographical errors. These areas are purely typographical due to imperfections of the software programs, and do not reflect any compromise in the patient's medical care. Plan discussed with: Other LAUREL SANCHEZ MD Sep 17, 2024 20:51
[2024-09-17] MEDS ORDERED: LORazepam 2MG/ML-1ML VIAL IV PRN (21:15)
[2024-09-17] MEDS: LEVETIRACETAM 500 MG/100 ML IV SCH (21:46)
[2024-09-17] MEDS ORDERED: PATIENTS OWN MEDICATION (keppra 750 MG) IV SCH (22:00)
[2024-09-17 22:32] LABS: Free T4 (Free Thyroxine) 1.24 ng/dL (0.89-1.76)
[2024-09-18] VITALS (9 sets, daily range): BP systolic 135–152; BP diastolic 68–94; PULSE 42–83; RESP 17–19; TEMP 97.8–98.7; O2SAT 95–99
--- NOTE | 2024-09-18 08:53 | DVHPN2 ---
Progress Note - Dictate Date Seen: Sep 18, 2024 Medical Necessity Reason Pt with a Central, PICC or Fol: No Subjective Mr. Headley is a 68 years old right-handed gentleman with a history of diabetes, he came to the [facility] on 09[facility]16[facility]24 with a chief complaint of seizure activity I have seen and examined the patient, talked to her nurse, he is doing fine, he is oriented to person, place, he knows year and the month, good social skill but he is not a good historian He does not remember his seizure symptoms, but he said it was his 2nd seizure in 2024, she reports taking Keppra but does not remember the dosage, he reports that he did not take it on a regular basis His CT/MR showed evidence suggestive of chronic stroke, the patient does not remember having stroke long time ago, but does not remember home with treated, he said the stroke symptom was nervousness he took aspirin sometimes Telephone numbers [phone], , tried, no answer. 123 UDS, 09/16/2024: Benzo, cannabinoids Urinalysis, 09/16/2024: WBC: 1, urine leukocyte esterase: Negative WBC/HB/PLT/MCV, 09/17/2024: 13.5/30.4/168/68.8 CMP, 09/17/2024: AST: 78 Lactic acid, 09/16/2024: 5.1, 1.6 Iron profile, 02/29/2024: Unremarkable TBI/AST/ALT/AP, 02/29/2024: 1.1/43/17/64 Vitamin B12, 09/17/2024: 280 Folic acid, 09/17/2024: 12.93 TSH, 02/28/2024: 1.29, 09/17/2024: 0.97 FT4, 09/17/2024: 1.24 EEG, 03/01/2025: Normal Abdominal ultrasound, 02/28/2025: Unremarkable hepatobiliary study without evidence of acute cholecystitis. CT head, 09/16/2024: 1. No CT evidence of acute intracranial abnormality. 2. Nonacute findings as described above (More focal areas of hypoattenuation are seen posteriorly involving the occipital lobes bilaterally and right parietal lobe, may be sequela of chronic infarcts.) Abdominal/pelvis CT, 02/28/2024: 1. Suboptimal visualization due to motion and beam hardening artifacts. 2. No definite acute abdominopelvic abnormalities MR headache, 09/18/2024: 1. No evidence of acute intracranial abnormality. 2. Nonacute findings as detailed above vital signs Vital Sign Date Time Temp Pulse Resp B/P (MAP) Pulse Ox O2 Delivery O2 Flow Rate FiO2 09/18/24 06:41 98 Room Air* 0 21 09/18/24 05:00 98.3 44 17 144/69 (94) 98.3 Total Intake and Output 09/17/24 09/17/24 09/18/24 15:00 23:00 07:00 Intake Total 670 ml 375 ml 350 ml Output Total 1360 ml 300 ml Balance 670 ml -985 ml 50 ml medications Current Medications Medications Dose Ordered Sig/Sergei Route Start Time Stop Time Status Last Admin Dose Admin Ceftriaxone Sodium 50 ml @ 100 mls/hr DAILY@09 IV 09/17/24 09:00 09/17/24 09:13 100 MLS/HR Azithromycin 250 ml @ 125 mls/hr Q24H IV 09/17/24 17:00 09/17/24 16:54 125 MLS/HR Albuterol 2.5 mg Q6HPRN PRN NEB 09/16/24 19:30 Pantoprazole Sodium 40 mg DAILY IV 09/17/24 10:00 09/17/24 09:13 40 MG Acetaminophen/ Hydrocodone Bitart 1 tab Q4HP PRN PO 09/16/24 19:30 Ondansetron HCl 4 mg Q4HP PRN IV 09/16/24 19:30 Acetaminophen 650 mg Q6HP PRN PO 09/16/24 19:30 Nitroglycerin 0.4 mg Q5MINP PRN SL 09/16/24 20:00 Morphine Sulfate 2 mg Q30M PRN IV 09/16/24 20:00 Lorazepam 1 mg Q5MINP PRN IV 09/17/24 21:15 Levetiracetam 150 ml @ 600 mls/hr BID IV 09/17/24 22:00 09/17/24 21:46 600 MLS/HR objective General: the patient is well developed and nourished. No acute distress. MENTAL STATUS: Awake and alert. Oriented to person, place, time and general circumstances. Able to give personal history SPEECH, LANGUAGE, HIGHER CORTICAL FUNCTION: no aphasia or dysathria. CRANIAL NERVES: Pupils are equal, round and reactive. EOMs full and conjugate. No nystagmus. Facial sensation intact in all three divisions bilaterally. Mandibular strength intact. Facial muscles symmetrical and strength intact. SENSATION: Sensation to touch and pinprick is normal. MOTOR: Normal tone in the upper and lower extremity. Normal muscle bulk. No fasciculations. No abnormal movements or posturing. Muscle strength of the major groups in the extremities is 5/5. REFLEXES: Deep tendon reflexes normal and symmetrical. No pathological reflexes. CEREBELLAR/COORDINATION: Finger to nose and heel to araujo are normal bilaterally. GAIT/STATION: Unremarkable laboratory and microbiology Laboratory Tests 09/17/24 06:06 Test 09/17/24 06:06 Range/Units Serum Glucose 138 H 74-106 mg/dL Problem List Seizure disorder with seizure breakthrough Grand mal seizure Altered mental status Prolonged postictal confusion Rule out status epileptics Abnormal CT brain scan, rule out stroke Low vitamin B12 Assessment/Plan Monitoring Supportive treatment Telemetry Seizure precaution Vitamin B12 Lipitor profile EEG Carotid Doppler Echocardiogram Cut the Keppra to 500 mg b.i.d Ativan for seizure breakthrough GI prophylaxis He does not drive Seizure triggers discussed Follow up with his [place] doctors on discharge More recommendation per clinical course This medical document was created using an electronic medical record system with [employer] dictation system. Although this document has been carefully reviewed, there may still be some phonetic and typographical errors. These areas are purely typographical due to imperfections of the software programs, and do not reflect any compromise in the patient's medical care. Prognosis poor Plan discussed with: Patient, Other Total Time (mins): 40 LAUREL SANCHEZ MD Sep 18, 2024 08:53
--- NOTE | 2024-09-18 09:07 | DVH ---
CLINICAL INDICATION: cva. Altered mental status. COMPARISON: CT dated 09/16/2024. TECHNIQUE: Multisequence multiplanar MRI images of the brain were obtained without contrast. FINDINGS: No acute infarct or hemorrhage. No mass or midline shift. Scattered areas of T2/FLAIR hype rintense signal in the periventricular and subcortical white matter are nonspecific, but most likely sequelae of chronic small vessel ischemic disease. More focal areas of encephalomalacia are seen in t he occipital lobes bilaterally and right parietal lobe, likely chronic infarcts. Small focal area of FLAIR hyperintense signal in the right side of the enriqueta, possible small chronic lacunar infarct. Vent ricles and sulci are within normal limits. Basal cisterns are patent. Mild mucosal thickening of the paranasal sinuses. Right lens prosthesis incidentally noted. Orbits are otherwise grossly unremarkab le. IMPRESSION: 1. No evidence of acute intracranial abnormality. 2. Nonacute findings as detailed above.
[2024-09-18] MEDS: levETIRAcetam 500 MG TAB PO ONE (10:30)
[2024-09-18 10:59] LABS: Triglycerides 136 mg/dL (< 150)
[2024-09-18 11:01] LABS: Cholesterol 164 mg/dL (< 200); HDL Cholesterol 52 mg/dL (40-59)
--- NOTE | 2024-09-18 12:00 | DVH ---
Carotid Duplex Date: 09/18/2024 10:36 AM Clinical History: cva Comparison: None Technique: Duplex Doppler evaluation of the extracranial carotid and vertebral arteries including col or Doppler and spectral/pulsed waveform analysis was performed. Findings: Velocities and ratios within normal limits IMPRESSION: No hemodynamically significant stenosis noted in the right carotid system. No hemodynamically significant stenosis noted in the left carotid system. Reference: Radiology 2003; [id number]
--- NOTE | 2024-09-18 12:38 | DVHPN2 ---
Reviewed: Care Plan, H&P, Labs, Medications, Previous Orders, Radiology Changes from previous H/P or p: No Changes Objective Vitals Vital Signs Date Time Temp Pulse Resp B/P (MAP) Pulse Ox O2 Delivery O2 Flow Rate FiO2 09/18/24 10:00 60 135/94 (108) 09/18/24 08:00 17 98 Room Air* 0 21 09/18/24 05:00 98.3 98.3 Intake/Output Intake and Output 09/18/24 07:00 Intake Total 1395 ml Output Total 1660 ml Balance -265 ml Intake Oral 350 ml IV Total 1045 ml Output Urine Total 1660 ml Medications Current Medications Medications Dose Ordered Sig/Sergei Route Start Time Stop Time Status Last Admin Dose Admin Ceftriaxone Sodium 50 ml @ 100 mls/hr DAILY@09 IV 09/17/24 09:00 09/18/24 09:51 100 MLS/HR Azithromycin 250 ml @ 125 mls/hr Q24H IV 09/17/24 17:00 09/17/24 16:54 125 MLS/HR Albuterol 2.5 mg Q6HPRN PRN NEB 09/16/24 19:30 Pantoprazole Sodium 40 mg DAILY IV 09/17/24 10:00 09/18/24 09:51 40 MG Acetaminophen/ Hydrocodone Bitart 1 tab Q4HP PRN PO 09/16/24 19:30 Ondansetron HCl 4 mg Q4HP PRN IV 09/16/24 19:30 Acetaminophen 650 mg Q6HP PRN PO 09/16/24 19:30 Nitroglycerin 0.4 mg Q5MINP PRN SL 09/16/24 20:00 Morphine Sulfate 2 mg Q30M PRN IV 09/16/24 20:00 Lorazepam 1 mg Q5MINP PRN IV 09/17/24 21:15 Levetiracetam 500 mg BID PO 09/18/24 22:00 Aspirin 81 mg DAILY PO 09/19/24 10:00 Atorvastatin Calcium 10 mg HS PO 09/18/24 22:00 Laboratory Results Laboratory Tests 09/17/24 06:06 Lipid panel Test 09/18/24 10:09 Cholesterol Level 164 mg/dL (< 200) HDL Cholesterol 52 mg/dL (40-59) Triglycerides Level 136 mg/dL (< 150) Urinalysis Test 09/16/24 16:19 Urine Color Colorless (Yellow) Urine Clarity Turbid (Clear) H Urine pH 5.0 (5.0-9.0) Urine Specific [place] 1.011 (1.001-1.035) Urine Protein 1+ (Negative) H Urine Ketones Negative (Negative) Urine Blood 1+ /uL (Negative) H Urine Nitrite Negative (Negative) Urine Bilirubin Negative (Negative) Urine Urobilinogen Normal mg/dL (Negative) Urine Leukocyte Esterase Negative /uL (Negative) Urine RBC 17 /hpf (0 - 3) Urine Microscopic WBC 1 /HPF (0-3) Urine Squamous Epithelial Cells None seen /hpf (<5) Urine Uric Acid Crystals Few /hpf (None Seen) Urine Bacteria None seen /hpf (None Seen) Urine Glucose 2+ mg/dL (Normal) H Microbiology Microbiology Date/Time Source Procedure Growth Status 09/16/24 18:55 Blood Blood Culture - Preliminary NO GROWTH AFTER 24 HOURS OF INCUBATION. Resulted Labs and/or images reviewed: Labs reviewed by me, Image(s) reviewed by me Assessment/Plan Assessment/Plan Breakthrough seizures: Ativan p.r.n., Kebrijeshra, seizure precautions, Neurology consult for Dr. Aburto, CT head negative MRI brain negative, carotid ultrasound negative Sepsis secondary to possible aspiration pneumonia blood cultures negative Acute metabolic encephalopathy Acute lactic acidosis Postictal state Possible aspiration pneumonia: Rocephin azithromycin Hypertension Diabetes History of seizures Noncompliance Patient feels better and wants to go home Family at bed side Plan discussed with: Patient Date of Service: Sep 18, 2024 Billing Provider: SOLOMON AVILES MD Common Visit Codes: [id number] INP/OBS CARE(HIGH) SOLOMON AVILES MD Sep 18, 2024 12:38
[2024-09-18] MEDS ORDERED: AZIT500T66 PO (12:41)
--- NOTE | 2024-09-18 12:44 | DVHDS2 ---
Discharge Summary Date of Admission Sep 16, 2024 at 19:49 Date of Discharge: Sep 18, 2024 Admitting Diagnosis Breakthrough seizures Wounds: None Labs/Diagnostic Data: Laboratory Results Test 09/18/24 10:09 09/17/24 06:06 09/16/24 19:52 09/16/24 16:19 Triglycerides Level 136 mg/dL (< 150) Cholesterol Level 164 mg/dL (< 200) LDL Cholesterol 92 mg/dL (< 100) HDL Cholesterol 52 mg/dL (40-59) Vitamin B12 Level 324 pg/mL (211-911) White Blood Count 13.5 10^3/uL (4.4-10.8) Red Blood Count 6.03 10^6/uL (4.5-5.90) Hemoglobin 13.4 g/dL (13.5-17.5) Hematocrit 41.5 % (41.0-53.0) Mean Corpuscular Volume 68.8 fL (80.0-100.0) Mean Corpuscular Hemoglobin 22.3 pg (28.0-32.0) Mean Corpuscular Hemoglobin Concent 32.4 g/dL (32.0-36.0) Red Cell Distribution Width 22.6 % (11.8-14.3) Platelet Count 168 10^3/uL (140-450) Mean Platelet Volume 8.5 fL (6.9-10.8) Neutrophils (%) (Auto) 88.7 % (37.0-80.0) Lymphocytes (%) (Auto) 4.6 % (10.0-50.0) Monocytes (%) (Auto) 6.5 % (0.0-12.0) Eosinophils (%) (Auto) 0.0 % (0.0-7.0) Basophils (%) (Auto) 0.2 % (0.0-2.0) Neutrophils # (Auto) 12.0 10 ^3/uL (1.6-8.6) Lymphocytes # (Auto) 0.6 10 ^3/uL (0.4-5.4) Monocytes # (Auto) 0.9 10 ^3/uL (0-1.3) Eosinophils # (Auto) 0 10 ^3/uL (0-0.8) Basophils # (Auto) 0 10 ^3/uL (0-0.2) Nucleated Red Blood Cells 0.1 % Platelet Estimate Adequate Hypochromasia (manual) Moderate Poikilocytosis (manual) Slight Anisocytosis (manual) Slight Microcytosis Moderate Target Cells Few Ovalocytes Few Sodium Level 145 mmol/L (136-145) Potassium Level 3.3 mmol/L (3.5-5.1) Chloride Level 108 mmol/L (98-107) Carbon Dioxide Level 25 mmol/L (20-31) Anion Gap 12 (5-15) Blood Urea Nitrogen 10 mg/dL (9-23) Creatinine 1.05 mg/dL (0.700-1.30) Glomerular Filtration Rate Calc 77 mL/min (>90) BUN/Creatinine Ratio 9.5 (10.0-20.0) Serum Glucose 138 mg/dL (74-106) Calcium Level 9.3 mg/dL (8.7-10.4) Total Bilirubin 1.0 mg/dL (0.2-1.0) Aspartate Amino Transferase (AST) 78 U/L (13-40) Alanine Aminotransferase (ALT) 19 U/L (7-40) Alkaline Phosphatase 59 U/L (46-116) Total Protein 6.8 g/dL (5.7-8.2) Albumin 4.4 g/dL (3.2-4.8) Folic Acid 12.93 ng/mL (>5.38) Thyroid Stimulating Hormone (TSH) 0.97 uIU/mL (0.55-4.78) Free Thyroxine (T4) Calculated 1.24 ng/dL (0.89-1.76) Lactic Acid Level 1.6 mmol/L (0.4-2.0) Urine Color Colorless (Yellow) Urine Clarity Turbid (Clear) Urine pH 5.0 (5.0-9.0) Urine Specific [place] 1.011 (1.001-1.035) Urine Protein 1+ (Negative) Urine Ketones Negative (Negative) Urine Blood 1+ /uL (Negative) Urine Nitrite Negative (Negative) Urine Bilirubin Negative (Negative) Urine Urobilinogen Normal mg/dL (Negative) Urine Leukocyte Esterase Negative /uL (Negative) Urine RBC 17 /hpf (0 - 3) Urine Microscopic WBC 1 /HPF (0-3) Urine Squamous Epithelial Cells None seen /hpf (<5) Urine Uric Acid Crystals Few /hpf (None Seen) Urine Bacteria None seen /hpf (None Seen) Urine Glucose 2+ mg/dL (Normal) Urine Opiates Screen Neg (NEGATIVE) Urine Fentanyl Screen Neg (NEGATIVE) Urine Barbiturates Screen Neg (NEGATIVE) Urine Phencyclidine Screen Neg (NEGATIVE) Urine Amphetamines Screen Neg (NEGATIVE) Urine Benzodiazepines Screen Pos (NEGATIVE) Urine Cocaine Screen Neg (NEGATIVE) Urine Cannabinoids Screen Pos (NEGATIVE) Test 09/16/24 14:09 Troponin I High Sensitivity 9 ng/L (</=54) Other Laboratory Tests 09/17/24 06:06 Brief Hx & Hospital Course: 8-year-old male with a history of seizures hypertension diabetes has not been taking Keppra and came in and admitted for breakthrough seizures treated with the Keppra. CT head negative MRI brain negative carotid ultrasound negative possible aspiration pneumonia treated with the azithromycin and Rocephin blood cultures negative seen by Neurology Dr. Aburto. At the time of discharge vital signs are stable patient is alert and awake oriented x3 and wants to go home family at bedside requesting to be discharged. Discharged home on azithromycin for possible pneumonia. Patient he has Keppra at home. Advised compliance and follow up with the his primary Dr at [place] Consults/Reason for consult Neurology Dr. Aburto Operations or Procedures CT head Carotid ultrasound MRI brain Condition at Discharge: Fair Final Diagnosis/Problems List Breakthrough seizures: Ativan p.r.n., Keppra, seizure precautions, Neurology consult for Dr. Aburto, CT head negative MRI brain negative, carotid ultrasound negative Sepsis secondary to possible aspiration pneumonia blood cultures negative Acute metabolic encephalopathy Acute lactic acidosis Postictal state Possible aspiration pneumonia: Rocephin azithromycin Hypertension Diabetes History of seizures Noncompliance Discharge Disposition: Home Discharge Instruct/Medications Diet: Regular Activity: Light activity Follow Up/Referral: Resume all previous home medications including Keppra Follow up with your primary Dr at [place] Medications: Azithromycin Transmitted to pharmacy Scheduled Amlodipine Besylate (Amlodipine Besylate), 1 TAB PO DAILY Apixaban Base (Eliquis), 5 MG PO BID Azithromycin (Azithromycin), 1 TAB PO DAILY Ferrous Sulfate (Gnp Iron), 1 TAB PO DAILY, (Reported) Levetiracetam (Keppra Tablet), 750 MG PO BID Levetiracetam (Levetiracetam), 1 TAB PO BID, (Reported) Lisinopril (Lisinopril), 5 MG PO DAILY Pantoprazole Sodium Sesquihydr (Pantoprazole Sodium), 40 MG PO DAILY Miscellaneous Medications Lactulose (Lactulose), ML PO, (Reported) 39 (Time taken for discharge summary 39 minutes) Discharge Statement: "Patient was advised to return to the ER or call 911 if any headaches, dizziness, shortness of breath, chest pain, abdominal pain, bleeding, fevers, or worsening of medical condition. Patient was counseled about treatment plan, medications, possible side effects, patientverbalized understanding. All questions were answered to the best of my ability. This discharge took greater then 30 minutes in planning, reviewing documentation, counseling the patient, and discussing with other team members." ASSESSMENT ASSESSMENT Hospital Course Uneventful Assessment Breakthrough seizures: [place] p.r.fátima, Minh, seizure precautions, Neurology consult for Dr. Aburto, CT head negative MRI brain negative, carotid ultrasound negative Sepsis secondary to possible aspiration pneumonia blood cultures negative Acute metabolic encephalopathy Acute lactic acidosis Postictal state Possible aspiration pneumonia: Rocephin azithromycin Hypertension Diabetes History of seizures Noncompliance Date of Service: Sep 18, 2024 Billing Provider: SOLOMON AVILES MD Common Visit Codes: 28409-FFB/OBS DISCH DAY >30min SOLOMON AVILES MD Sep 18, 2024 12:44
[2024-09-18] MEDS: ASPirin-EC 81 mg tab PO ONE (14:44)
[2024-09-18] MEDS ORDERED: levETIRAcetam 500 MG TAB PO SCH (22:00)
[2024-09-18] MEDS ORDERED: ATORVASTATIN 20 MG TAB PO SCH (22:00)
[2024-09-19] MEDS ORDERED: ASPirin-EC 81 mg tab PO SCH (10:00)
--- NOTE | 2024-09-19 20:51 | DVHSR ---
APPROVED REPORT EXAM: Two-dimensional and M-mode echocardiogram with Doppler and color Doppler. Blood Pressure: 135/94 mmHg INDICATION CVA? RISK FACTORS Height: 6'0", Weight: 163 DIMENSIONS LVDd4.8 (3.8-5.7cm)LA (2D)4.0 (1.9-4.0cm)Aortic Root3.8 (2.0-3.7cm) LVDs3.6 (2.5-4.0cm)LA (MM) (1.9-4.0cm)Aortic Cusp Exc2.1 (1.5-2.0cm) EF (%) 55.0 (55-70%)Rt. Atrium3.6 (1.9-4.0cm)Asc. Aorta cm IVSd1.1 (0.7-1.1cm)RV (D)3.6 (1.8-2.4cm) PWd1.2 (0.7-1.1cm) Mitral Valve MitralMitral Stenosis E wave0.75m/sMV Mean GR.mmHg A wave0.86m/sMV Peak GR.mmHg E/A ratio0.92D MVAcm2 DECEL [id number] 1/2 [place] Aortic Valve Aortic ValveAortic Stenosis V10.95m/Lian Mean GR.3mmHg V21.34m/Lian Peak GR.7mmHg LVOT Diameter2.4 (1.8-2.4cm)Doppler AVA3.21cm2 Pulmonic Valve V20.88m/s Conclusion NORMAL LV EF AND IS 55% NORMAL VALVES NO EFFUSION NORMAL RV FUNCTION
== END 2024-09-18 14:55 | disposition home or self-care (01) | DRG 871 ==
LOC: EDBD 13:36 → ER 13:42 → OVERFLOW 19:49 → TELE-WESTW 20:30
PROVIDERS: ADMIT Family Medicine; ATTEND Family Medicine
DX: A41.9 Sepsis, unspecified organism (principal); J18.9 Pneumonia, unspecified organism; J69.0 Pneumonitis due to inhalation of food and vomit; N17.9 Acute kidney failure, unspecified; I16.1 Hypertensive emergency; E87.21 Acute metabolic acidosis; G40.409 Other generalized epilepsy and epileptic syndromes, not intractable, without status epilepticus; E11.9 Type 2 diabetes mellitus without complications; I10 Essential (primary) hypertension; Z79.01 Long term (current) use of anticoagulants; Z82.49 Family history of ischemic heart disease and other diseases of the circulatory system; Z91.199 Patient's noncompliance with other medical treatment and regimen due to unspecified reason; Z78.1 Physical restraint status; Z79.899 Other long term (current) drug therapy
CPT/HCPCS: 36415; 70450; 70551; 71045; 80048; 80053; 80061; 80307; 81001; 82607; 82746; 83605; 84439; 84443; 84484; 85025; 87040; 93005; 93306; 93886; 96365; 96372; 96375; 99291; 99292; G0378; J0131; J2250; J2470; J2543; J3480